=== PATIENT | female | born 1985 | race Caucasian/White ===

== ENCOUNTER 2019-05-23 15:06 | Inpatient (IN) | payer SELFPAY ==
[2019-05-23] VITALS (7 sets, daily range): BP systolic 98–119; BP diastolic 57–66; PULSE 84–107; RESP 16–19; TEMP 36.6–37.4; O2SAT 96–100; BMI 23.2; BMI 24.6
--- NOTE | 2019-05-23 15:26 | US_ITS ---
STUDY: FIRST TRIMESTER OBSTETRICAL ULTRASOUND REASON FOR EXAM: Female, 34 years old. Left lower quadrant pain. Severe. Beta hCG 326. LMP: April 29, 2019 TECHNIQUE: Transvaginal TECHNICAL QUALITY: Adequate. PRIOR ULTRASOUND: None. FINDINGS: There is no demonstrated intrauterine gestational sac. There is no demonstrated yolk sac. The uterus measures 6.7 x 4.6 x 6.2 cm. The myometrium is heterogenous. There is no demonstrated uterine fibroid. The endometrial stripe measures 12.7 mm and is within normal limits. The cervix is closed. The right ovary measures 3.9 x 2.4 x 2.9 cm. There is slightly heterogenous 2.4 x 2.3 x 1.7 cm rounded focus within the right ovary may reflect a complex cyst. The left ovary measures 3.1 x 1.4 x 1.4 cm. There is no left ovarian cyst. There is no visualized left adnexal mass or complex lesion. There is a moderate amount of fluid in the cul de sac. US/Transvaginal w/Preg US IMPRESSION: Moderate amount of free fluid. Heterogenous myometrium may be secondary to underlying adenomyosis. Indeterminate round 2.4 x 2.3 x 1.7 cm within the right ovary and may reflect an underlying corpus luteal cyst however cannot entirely exclude an ectopic . No intrauterine identified. N.B. : The above information has been verbally conveyed by Gali Preciado MD to Tex Lucero AA, on 05/23/2019 17:07:23 (ET). Electronically Signed: Gali Preciado MD at 17:09 EDT Tel , Service support ,
--- NOTE | 2019-05-23 15:30 | ED.DCSUM_ITS ---
- ER Visit Summary Date of Service: 05/23/19 Chief Complaint: Possible ectopic History of Present Illness: The patient is a 34 F who presents with possible ectopic . Patient states she had an ultrasound done in [place] which showed a questionable ectopic . Patient states they were unsure what the saw there and were referred here. Patient states she has had left lower quadrant abdominal pain for the past 3 days that is been getting progressively worse. Patient states the pain is now diffuse but worse in the left lower quadrant. Patient states her pain is worse with moving and with palpation of her abdomen. Patient denies any abnormal vaginal bleeding or discharge. Patient denies any nausea or vomiting. Patient denies any dysuria or hematuria. Patient states her last menstrual period was approximately 30 days ago and was normal. Physical Examination: Vital signs are stable except for mild tachycardia of 107. Patient is afebrile. Patient is in no acute distress. Oral mucosa is pink and moist. Neck is supple. Trachea is midline. There is no JVD noted. Heart was regular rate and rhythm. Lungs are clear and equal bilaterally. Abdomen is soft. Bowel sounds are normal. There is left lower quadrant tenderness. There is no guarding noted. There is mild rebound. There is also some mild left upper quadrant tenderness. There is no right-sided tenderness. Cranial nerves II through XII are intact. There are no focal motor or sensory deficits noted. Test Results: CBC shows leukocytosis of 16.7. Metabolic profile is within normal limits. Urinalysis does not show any evidence of urinary tract in fection. Quantitative hCG was 326. Pelvic ultrasound showed moderate free fluid, indeterminate round 2.4 x 2.3 x 1.7 cm area within the right ovary which may reflect an underlying corpus luteal cyst however ectopic cannot be excluded. Emergency Department Course and Treatment: She was given IV fluids and morphine here. Patient had no improvement with initial morphine. Patient was given a repeat dose of morphine. Patient states she had no improvement with this. Case was discussed with Dr. Patterson. She will admit the patient to her service for possible laparoscopy. Patient was given a repeat dose of Dilaudid. Patient understood and was agreeable with the plan. All questions were answered. Disposition: Admit to hospital Impression: 1. Pelvic pain 2. Possible ectopic This note was generated with [employer] software. It may contain incorrect words, spelling, and punctuation that were not noted in review of the chart prior to signing ED Disposition - Plan for ED Patient: Disposition: Acute Care Hospital [facility] Diagnosis: Pelvic pain Referrals: Deya Diaz PA [Primary Care Provider] -
[2019-05-23] MEDS: 0.9% Normal Saline 1,000 ML 1000 ML IV (15:42)
[2019-05-23] MEDS: Morphine 4 MG/ML Syringe IV ×2 (15:42→18:01)
[2019-05-23 15:47] LABS: Absolute Neutrophil Count 14.5 X10^3/uL (2.0-7.7); Basophil# 0.05 X10^3/uL; Basophil% 0.3 % (0-1); Eosinophil# 0.01 X10^3/uL; Eosinophils% 0.1 % (0-5); Hematocrit 42.2 % (37-47); Hemoglobin 14.4 g/dL (12.0-15.0); Lymphocyte % 7.8 % (19-41); Mean Corp Hgb Conc 34.1 g/dL (32-36); Mean Corpuscular Hgb 30.3 pg (27.0-32.0); Mean Corpuscular Volume 88.7 fL (81-99); Mean Platelet Vol. 9.5 fl (6.2-12.0); Monocyte# 0.73 X10^3/uL; Monocyte% 4.4 % (0-10); NRBC Flagged by Analyzer 0 % (0-5); Neutrophil # 14.53 X10^3/uL (2.7-7.7); Neutrophil % 87.1 % (47-70); Platelet Count 308 K/mm3 (150-450); RBC Distribution Width CV 13.1 % (11.6-14.6); RBC Distribution Width SD 42.6 fl (35.1-43.9); Red Blood Count 4.76 M/mm3 (4.2-5.4); White Blood Count 16.7 K/mm3 (4.4-11.0)
[2019-05-23 15:59] LABS: Anion Gap 7 (5-15); BUN 8 mg/dL (7-18); BUN/Creat Ratio 10.6 RATIO (10-20); Calcium,Total 8.7 mg/dL (8.5-10.1); Chloride 105 mmol/L (98-107); Creatinine, Serum 0.75 mg/dL (0.55-1.02); EST Glomerular Filtration Rate 95 mL/min (>60); Est Glom Filt Rate - Afr Amer 115 mL/min (>60); Estimated Creatinine Clearance 77.35 ml/min; Glucose 84 mg/dL (74-106); Potassium 3.8 mmol/L (3.5-5.1); Sodium Level 137 mmol/L (136-145)
[2019-05-23 16:28] LABS: Mucous, Urine 0 SEEN /hpf (<or=2+); Red Blood Cells-Urine 0 SEEN /hpf (0-5); White Blood Cells 0 SEEN /hpf (0-5)
[2019-05-23 16:31] LABS: hCG Titer Quant., Serum 326 mIU/mL (1-3)
[2019-05-23 16:40] LABS: Color, Urine Yellow (Yellow); Glucose, Dipstick Normal (Normal); Ketone-Dipstick 50 mg/dl (Negative); Leukocyte Esterase-Dipstick Negative /ul (Negative); Nitrite-Dipstick Negative (Negative); Occult Blood-Urine 10 /ul (Negative); Protein-Dipstick Negative (Negative); Specific Gravity, Urine 1.005 (1.002-1.030); Urine Bilirubin Dipstick Negative (Negative); Urine Clarity Clear (Clear); Urine Urobilinogen Normal (Normal); Urine pH 6.5 (5.0 - 8.0)
[2019-05-23 16:58] LABS: Bacteria 2+ /hpf (None Seen); Squamous Epithelial Cells - UA 0-5 SEEN /hpf (5-10)
[2019-05-23] MEDS: HYDROmorphone 0.5 MG/0.5 ML SYRINGE IV (19:13)
--- NOTE | 2019-05-23 19:38 | HP.PCM_ITS ---
History and Physical Date of Admission: 05/23/19 HISTORY OF PRESENT ILLNESS: On 05/23/2019, Anabela Chi, a 34 year old female 1 1 0 0 2, presented for: Anabela presents to [facility] Emergency Dept from [facility] with CC of abdominal pain worsening over the past three days, positive test and possible ectopic . Hgb is stable at 14.4 g/dl. Unable to definitively dx ectopic on sono at [facility], but no IUP noted and increased free fluid in posterior cul de sac. this is confirmed on [facility] sono also. Quant is 326 mIU/ml She has had two doses of morphine and states pain has not improved. last ate yesterday, but has been drinking water today. EB -- abdominal pain. LLQ which began 3 d ago. Anabela claims it has been present continuously. It is located in the lower abdomen. LLQ more than RLQ, but beginning to radiate to RLQ radiating to RLQ. Anabela characterizes the quality o f the abdominal pain. LLQ as cramping. It is relieved by nothing. An associated sign and symptom is none. Additional comment: no vaginal bleeding. ALLERGIES: No Known Allergies MEDICATIONS HISTORY: Current medications prescribed by our practice are: 1. None. REVIEW OF SYSTEMS: GENERAL - Denies fever, or chills SKIN - Denies skin changes EYES - Denies visual changes EARS - Denies difficulty hearing NOSE - Denies nasal congestion or bleeding MOUTH - Denies sore throat or difficulty swallowing NECK - Denies pain or swelling RESPIRATORY - Denies shortness of breath or wheezing CARDIOVASCULAR - Denies palpitations or chest pain GASTROINTESTINAL - denies Nausea, vomiting GENITOURINARY - Denies dysuria, frequency of urination, incontinence of urine MUSCULOSKELETAL - Denies joint or muscle pain NEUROLOGICAL - Denies localized numbness or weakness PSYCHIATRIC - Denies depression or anxiety ENDOCRINE - Denies heat or cold intolerance, weight loss or gain HEMATO-IMMUNOLOGIC - Denies excessive bleeding with cuts PAST HISTORY: Breast/Ovarian/Colon Cancers - Denies Infections - Chicken pox Illnesses - no serious past illnesses Accidents - None History of Abnormal PAPS - Denies Hospitalizations - see surgery SURGICAL HISTORY: 1. 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 No guarding Painful more on LLQ to midlower abdomen but starting to radiate to RLQ also EXTREMITIES - No edema or calf tenderness NEUROLOGICAL - normal gait, normal balance, normal motor PSYCHIATRIC - A and O to time, place, person, mood and affect PELVIC ULTRASOUND: There is no demonstrated intrauterine gestational sac. Uterus 6.7 x 4.6 x 6.2 cm. Endometrial stripe: 12.7 mm and is within normal limits. The cervix is closed. R ovary: 3.9 x 2.4 x 2.9 cm. There is slightly heterogenous 2.4 x 2.3 x 1.7 cm rounded focus within the right ovary may reflect a complex cyst. L ovary: 3.1 x 1.4 x 1.4 cm. There is no left ovarian cyst. There is no visualized left adnexal mass or complex lesion. There is a moderate amount of fluid in the cul de sac. ASSESSMENT: 1. Abdominal Pain,LLQ 2. Unspecified Ectopic Without Intrauterine PLAN BY DIAGNOSIS: 1. Abdominal Pain,LLQ and Unspecified Ectopic Without Intrauterine Worsening pain over last 3 d. No IUP noted. Inc free fluid in posterior cul de sac. Quant only 323 mIU/ml Advised of diff dx and likely diagnosis of ectopic Morphine given twice, with no change in pain. Recommend: laparoscopy for evaluation. Possible salpingectomy. R,B,A of procedure reviewed. All questions answered to patient's and 's satisfaction. consents signed. The visit was approximately 20 minutes in length with most of the time spent in discussion and counseling. H and P generated at time of patient admission. No changes to this document Cedric Patterson MD 05/23/19 1950
[2019-05-23] MEDS: Bupiv/Epi 0.25% 30 ML Vial (21:30)
[2019-05-23] MEDS: Lactated Ringers 1,000 ML 100 ML IV ×2 (22:00→23:01)
--- NOTE | 2019-05-23 23:26 | OP.PCM_ITS ---
Problem List (1) Perforation of sigmoid colon due to diverticulitis Status: Acute Report of Operation Date of Procedure: 05/23/19 Pre-Operative Diagnosis: Perforated sigmoid diverticulitis Post-Operative Diagnosis: Same Surgery/Procedure Performed:: Sigmoid colectomy with anastomosis Specimen's removed: Partial sigmoid colon Description of Procedure: I was called into surgery by Dr. Patterson due to inflamed colon. Upon inspecting the colon laparoscopically the patient appeared to have thickening of a small segment of sigmoid colon with perforation and a small stool ball coming through the hole. At this time I discussed options with her SYNTHETIC RESIN OPERATOR. I discussed the option of sigmoid colectomy with colostomy and with performing a washout. It was decided that the best option would be to perform a partial sigmoid colectomy and primary anastomosis via laparotomy. I discussed this with the patient's . I discussed the risks of bleeding, infection, anastomotic leak, sepsis. I also discussed that there is risk to the fetus if the anastomosis failed. The patient's believes the patient would like to try to perform surgery without the colostomy. A midline incision was made from the superior umbilical port to the inferior suprapubic area. This was deepened to the fascia using electrocautery. The fascia was also divided using electrocautery. A large wound protector was placed into the wound. The sigmoid colon was delivered into the wound. An area proximal and distal to the thickened area were selected. The bowel was divided sharply and the mesentery to the diseased segment of colon was taken with the LigaSure impact. This was sent for pathology. Next each end of the bowel was inspected and appeared to be slowly oozing and having good blood supply. A stay suture was placed on both lateral segments of each piece of the sigmoid colon and these were brought together. Using interrupted silk sutures in the posterior side the serosa was reapproximated. Next two 3-0 chromic sutures were placed in the middle of the posterior sigmoid colon and run in opposite directions laterally. Next the 3-0 chromic sutures were used to [place] suture the anterior bowel wall together. Next anterior serosa was imbricated using interrupted 3-0 silk sutures. The suture line was inspected circumferentially and it appeared to have good hemostasis and airtight. The abdomen was then irrigated and suctioned dry. The mesenteric defect was inspected and loosely approximated using a 3-0 Vicryl suture. The suture line was inspected once more and appeared to be very viable. Next the anterior fascia was closed with 2 running 0 Prolene suture starting either end and meeting in the middle. The subcutaneous tissue was then irrigated and the skin was closed with interrupted 4-0 Monocryl sutures as well as Steri-Strips. Bandages were applied and the patient was awoken and taken to PACU in stable condition. The patient tolerated the procedure well. - Admit VTE Documentation VTE Mechan Device Prophylaxis: SCD's
[2019-05-24] VITALS (9 sets, daily range): BP systolic 93–112; BP diastolic 50–66; PULSE 81–100; RESP 16–18; TEMP 36.4–37.7; O2SAT 95–100; BMI 24.6
--- NOTE | 2019-05-24 | MISC_PTH ---
PATIENT: RAYMOND PLUNKETT LOC: MS3 U#:[id number] AGE/SX: 34/F [place] [facility] [place]: Dr. Jeremie Thibodeaux MD : [id number] BED: 1 DIS: 05/26/2019 SPEC #: [id number] RECD: 05/24/19 12:04 STATUS: PIETER REFeliciano #: [id number] MELISSA: 05/24/19 00:[address]: Jeremie Thibodeaux DEPT: SURGICAL PATHOLOGY RECD BY: Stevenson Pina ENTERED: 05/24/19 12:05 SP TYPE: MISC MINI DR: MD Deya Ayala PA Tissues: A - Pelvis, NOS B - Colon, NOS Procedures: Surgery Specimen Level IV Surgery Specimen Level V HEADER OPERATION: Exploratory laparoscopy converted to open sigmoid colectomy PRE-OP DIAGNOSIS: Ectopic abdominal pain TISSUE SUBMITTED: A - Inflammation of pelvic tissue, B - Sigmoid colon MICROSCOPIC DIAGNOSIS A. Inflammation of pelvic tissue: Fragments of fibroconnective tissue with marked acute and chronic inflammation. B. Sigmoid colon, colectomy: Diverticulosis and diverticulitis. Minute pericolonic lymph nodes with reactive changes. DELMY:ben 05/25/19 MICROSCOPIC DESCRIPTION Slides are reviewed. GROSS DESCRIPTION A - Received in fixative is one container labeled with the patient's name and designated inflammation of pelvic tissue. The specimen consists of multiple irregular fragments of wills-pink soft tissue that in aggregate measure 1.5 x 1 x 0.3 cm. The entire specimen is submitted in one cassette. B - Received in fixative is one container labeled with the patient's name and designated sigmoid colon. The specimen consists of a segment of colon measuring 3.5 cm in length. The serosal surface is covered with dawn purulent exudate. Focal area of congestion and hemorrhage is noted. Both resection margins are opened (not stapled). Sections reveal multiple diverticula with a focal area with ruptured diverticula. Sections of pericolonic adipose tissue do not reveal any obviously enlarged lymph node. Sack Sorter sections are submitted in five cassettes as follows: 1-4 - diverticula, 5 - pericolonic adipose tissue. / DELMY:ben 05/24/19 TC:2 CPT: 84771, 49986
--- NOTE | 2019-05-24 00:25 | NURSING ---
report received form INDUSTRIAL TWISTING MACHINE OPERATOR Lisa
[2019-05-24] MEDS: Ketorolac 30 MG/ML Syringe IV ×5 (01:37→23:48)
[2019-05-24] MEDS: 0.9% NaCl Peripheral Flush Adult/Peds IV ×2 (01:42→05:22)
[2019-05-24] MEDS: Lactated Ringers 1,000 ML 100 ML IV ×4 (03:42→23:50)
[2019-05-24] MEDS: 0.9% NaCl IVPB Med Flush (250 mL) 15 ML IV (05:24)
[2019-05-24 06:28] LABS: Hematocrit 36.6 % (37-47); Hemoglobin 12.3 g/dL (12.0-15.0); Mean Corp Hgb Conc 33.6 g/dL (32-36); Mean Corpuscular Volume 89.3 fL (81-99); Mean Platelet Vol. 9.7 fl (6.2-12.0); Platelet Count 280 K/mm3 (150-450); RBC Distribution Width CV 13.4 % (11.6-14.6); White Blood Count 17.3 K/mm3 (4.4-11.0)
--- NOTE | 2019-05-24 08:09 | PCM.PN.SRG ---
Patient Problems: Active and Suspected Problems Pelvic pain (Acute) Perforation of sigmoid colon due to diverticulitis (Acute) Subjective: Patient reports no flatus yet. Her pain is improved since before surgery. - Physical Exam General: Alert, Oriented x3 HEENT: Atraumatic Neck: No JVD Lungs: Normal air movement Cardiovascular: Regular rate, Regular Rhythm Abdomen: Soft, Non Tender, Non-Distended Extremities: No clubbing Skin: No rashes Musculoskeletal: No Muscle Wasting Neurological: Cranial nerves II-XII grossly intact Vital Signs Temp Pulse Resp BP Pulse Ox 99.6 F H 91 18 94/60 97 05/24/19 04:30 05/24/19 04:30 05/24/19 04:30 05/24/19 04:30 05/24/19 04:30 Oxygen Delivery Method Room Air Weight: 126 lb 1.671 oz Body Mass Index (BMI) 24.6 Intake and Output for Last 24 Hours 05/22/19 05/23/19 05/24/19 23:59 23:59 23:59 Intake Total 2049 / 2049 507.66 / 507.66 Output Total 200 / 200 1200 / 1200 Balance 1850 / 1850 -692.34 / -692.34 Laboratory Tests Past 24 Hrs 05/23/19 05/23/19 05/23/19 15:35 15:35 15:35 WBC 16.7 H RBC 4.76 Hgb 14.4 Hct 42.2 MCV 88.7 MCH 30.3 MCHC 34.1 RDW Std Deviation 42.6 RDW Coeff of Nicholas 13.1 Plt Count 308 MPV 9.5 Immature Gran % (Auto) 0.300 Neut % (Auto) 87.1 H Lymph % (Auto) 7.8 L [place] % (Auto) 4.4 Eos % (Auto) 0.1 Baso % (Auto) 0.3 Absolute Neuts (auto) 14.5 H Absolute Lymphs (auto) 1.30 Nucleated RBC % 0 Sodium Potassium Chloride Carbon Dioxide Anion Gap BUN Creatinine Estim Creat Clear Calc Est GFR (MDRD) Af Amer Est GFR (MDRD) Non-Af BUN/Creatinine Ratio Glucose Calcium HCG, Quant 326 H Urine Color Urine Clarity Urine pH Ur Specific [place] Urine Protein Urine Glucose (UA) Urine Ketones Urine Occult Blood Urine Nitrite Urine Bilirubin Urine Urobilinogen Ur Leukocyte Esterase Urine RBC Urine WBC Ur Squamous Epith Cells Urine Bacteria Urine Mucus Blood Type TNP 05/23/19 05/23/19 05/23/19 15:35 15:35 16:20 WBC RBC Hgb Hct MCV MCH MCHC RDW Std Deviation RDW Coeff of Nicholas Plt Count MPV Immature Gran % (Auto) Neut % (Auto) Lymph % (Auto) [place] % (Auto) Eos % (Auto) Baso % (Auto) Absolute Neuts (auto) Absolute Lymphs (auto) Nucleated RBC % Sodium 137 Potassium 3.8 Chloride 105 Carbon Dioxide 25.0 Anion Gap 7 BUN 8 Creatinine 0.75 Estim Creat Clear Calc 77.35 Est GFR (MDRD) Af Amer 115 Est GFR (MDRD) Non-Af 95 BUN/Creatinine Ratio 10.6 Glucose 84 Calcium 8.7 HCG, Quant Urine Color Yellow Urine Clarity Clear Urine pH 6.5 Ur Specific [place] 1.005 Urine Protein Negative Urine Glucose (UA) Normal Urine Ketones 50 H Urine Occult Blood 10 H Urine Nitrite Negative Urine Bilirubin Negative Urine Urobilinogen Normal Ur Leukocyte Esterase Negative Urine RBC 0 SEEN Urine WBC 0 SEEN Ur Squamous Epith Cells 0-5 SEEN Urine Bacteria 2+ Urine Mucus 0 SEEN Blood Type A POSITIVE 05/24/19 05:55 WBC 17.3 H RBC 4.10 L Hgb 12.3 Hct 36.6 L MCV 89.3 MCH 30.0 MCHC 33.6 RDW Std Deviation 44.0 H RDW Coeff of [place] 13.4 Plt Count 280 MPV 9.7 Immature Gran % (Auto) Neut % (Auto) Lymph % (Auto) [place] % (Auto) Eos % (Auto) Baso % (Auto) Absolute Neuts (auto) Absolute Lymphs (auto) Nucleated RBC % Sodium Potassium Chloride Carbon Dioxide Anion Gap BUN Creatinine Estim Creat Clear Calc Est GFR (MDRD) Af Amer Est GFR (MDRD) Non-Af BUN/Creatinine Ratio Glucose Calcium HCG, Quant Urine Color Urine Clarity Urine pH Ur Specific [place] Urine Protein Urine Glucose (UA) Urine Ketones Urine Occult Blood Urine Nitrite Urine Bilirubin Urine Urobilinogen Ur Leukocyte Esterase Urine RBC Urine WBC Ur Squamous Epith Cells Urine Bacteria Urine Mucus Blood Type Clinical Impression(s) from Imaging Studies Obstetrics Ultrasound 05/23/19 15:26 IMPRESSION: Moderate amount of free fluid. Heterogenous myometrium may be secondary to underlying adenomyosis. Indeterminate round 2.4 x 2.3 x 1.7 cm within the right ovary and may reflect an underlying corpus luteal cyst however cannot entirely exclude an ectopic . No intrauterine identified. N.B. : The above information has been verbally conveyed by Gali Preciado MD to Tex Lucero AA, on 05/23/2019 17:07:23 (ET). Electronically Signed: Gali Preciado MD at 17:09 EDT Tel , Service support , ADDENDUM: 05/23/19 1716 IMPRESSION: Moderate amount of free fluid. Heterogenous myometrium may be secondary to underlying adenomyosis. Indeterminate round 2.4 x 2.3 x 1.7 cm within the right ovary and may reflect an underlying corpus luteal cyst however cannot entirely exclude an ectopic . No intrauterine identified. N.B. : The above information has been verbally conveyed by Gali Preciado MD to Tex Lucero AA, on 05/23/2019 17:07:23 (ET). Electronically Signed: Gali Preciado MD at 17:09 EDT Tel , Service support , Medical Necessity - Tobacco Use Smoking Status: Never smoker Assessment/Plan All Active Problems Pelvic pain (Acute) Perforation of sigmoid colon due to diverticulitis (Acute) 34-year-old female with perforated diverticulitis 1. The patient underwent emergency sigmoid colectomy due to perforation. Primary anastomosis was performed. I explained the surgery and further risks to the patient this morning. I explained that there is a chance of anastomotic leak and if this were to happen she would have to be converted to an end colostomy. 2. I would like to keep patient n.p.o. today. She is not passing any flatus yet. Likely start clears tomorrow. Jeremie Thibodeaux MD Pager: [facility] [address] [place] [address], [address] [place] [address] Office:
--- NOTE | 2019-05-24 08:23 | PN.OBGYN_ITS ---
Patient Problems: Active and Suspected Problems Pelvic pain (Acute) Perforation of sigmoid colon due to diverticulitis (Acute) Subjective: POD#1 L/S for pain. Perforated sigmoid colon diverticula S/P Laparotomy for resection and reanastamosis. Early with quant 326 mIU/ml Some upper abdominal pain. Pain is improving other than that pain. No N/V. neg flatus. remains NPO. K pad use. - Physical Exam General: Alert, Oriented x3, Cooperative, No apparent distress HEENT: Atraumatic, EOMI Neck: Supple Skin: Incision - dressings CDI. Psych/Mental Status: Normal Affect Vital Signs Temp Pulse Resp BP Pulse Ox 99.1 F 81 18 94/63 100 05/24/19 08:15 05/24/19 08:15 05/24/19 08:15 05/24/19 08:15 05/24/19 08:15 Oxygen Delivery Method Room Air Weight: 57.2 kg Body Mass Index (BMI) 24.6 Intake and Output for Last 24 Hours 05/22/19 05/23/19 05/24/19 23:59 23:59 23:59 Intake Total 2049 / 2049 507.66 / 507.66 Output Total 200 / 200 1200 / 1200 Balance 1850 / 1850 -692.34 / -692.34 Laboratory Tests Past 24 Hrs 05/23/19 05/23/19 05/23/19 15:35 15:35 15:35 WBC 16.7 H RBC 4.76 Hgb 14.4 Hct 42.2 MCV 88.7 MCH 30.3 MCHC 34.1 RDW Std Deviation 42.6 RDW Coeff of Nicholas 13.1 Plt Count 308 MPV 9.5 Immature Gran % (Auto) 0.300 Neut % (Auto) 87.1 H Lymph % (Auto) 7.8 L [place] % (Auto) 4.4 Eos % (Auto) 0.1 Baso % (Auto) 0.3 Absolute Neuts (auto) 14.5 H Absolute Lymphs (auto) 1.30 Nucleated RBC % 0 Sodium Potassium Chloride Carbon Dioxide Anion Gap BUN Creatinine Estim Creat Clear Calc Est GFR (MDRD) Af Amer Est GFR (MDRD) Non-Af BUN/Creatinine Ratio Glucose Calcium HCG, Quant 326 H Urine Color Urine Clarity Urine pH Ur Specific [place] Urine Protein Urine Glucose (UA) Urine Ketones Urine Occult Blood Urine Nitrite Urine Bilirubin Urine Urobilinogen Ur Leukocyte Esterase Urine RBC Urine WBC Ur Squamous Epith Cells Urine Bacteria Urine Mucus Blood Type TNP 05/23/19 05/23/19 05/23/19 15:35 15:35 16:20 WBC RBC Hgb Hct MCV MCH MCHC RDW Std Deviation RDW Coeff of [place] Plt Count MPV Immature Gran % (Auto) Neut % (Auto) Lymph % (Auto) [place] % (Auto) Eos % (Auto) Baso % (Auto) Absolute Neuts (auto) Absolute Lymphs (auto) Nucleated RBC % Sodium 137 Potassium 3.8 Chloride 105 Carbon Dioxide 25.0 Anion Gap 7 BUN 8 Creatinine 0.75 Estim Creat Clear Calc 77.35 Est GFR (MDRD) Af Amer 115 Est GFR (MDRD) Non-Af 95 BUN/Creatinine Ratio 10.6 Glucose 84 Calcium 8.7 HCG, Quant Urine Color Yellow Urine Clarity Clear Urine pH 6.5 Ur Specific [place] 1.005 Urine Protein Negative Urine Glucose (UA) Normal Urine Ketones 50 H Urine Occult Blood 10 H Urine Nitrite Negative Urine Bilirubin Negative Urine Urobilinogen Normal Ur Leukocyte Esterase Negative Urine RBC 0 SEEN Urine WBC 0 SEEN Ur Squamous Epith Cells 0-5 SEEN Urine Bacteria 2+ Urine Mucus 0 SEEN Blood Type A POSITIVE 05/24/19 05:55 WBC 17.3 H RBC 4.10 L Hgb 12.3 Hct 36.6 L MCV 89.3 MCH 30.0 MCHC 33.6 RDW Std Deviation 44.0 H RDW Coeff of [place] 13.4 Plt Count 280 MPV 9.7 Immature Gran % (Auto) Neut % (Auto) Lymph % (Auto) [place] % (Auto) Eos % (Auto) Baso % (Auto) Absolute Neuts (auto) Absolute Lymphs (auto) Nucleated RBC % Sodium Potassium Chloride Carbon Dioxide Anion Gap BUN Creatinine Estim Creat Clear Calc Est GFR (MDRD) Af Amer Est GFR (MDRD) Non-Af BUN/Creatinine Ratio Glucose Calcium HCG, Quant Urine Color Urine Clarity Urine pH Ur Specific [place] Urine Protein Urine Glucose (UA) Urine Ketones Urine Occult Blood Urine Nitrite Urine Bilirubin Urine Urobilinogen Ur Leukocyte Esterase Urine RBC Urine WBC Ur Squamous Epith Cells Urine Bacteria Urine Mucus Blood Type Medical Necessity - Tobacco Use Smoking Status: Never smoker Assessment/Plan All Active Problems Pelvic pain (Acute) Perforation of sigmoid colon due to diverticulitis (Acute) #1) POD#1 L/S to laparotomy for perforated sigmoid diverticulitis #2) early . Quant 326 mIU/ml yesterday. repeat quant planned tomorrow to check trend. Early . Will notify of results of follow up quant as available. Care transferred to Dr Thibodeaux.
--- NOTE | 2019-05-24 13:15 | CASEMGMT ---
SW met w/pt and in room in regard to financial status. Pt explained that they pay into a [employer] fund, but she did have questions about paying in full and getting a discount, and if they can apply for assistance. SW explained will call the financial dept and see if someone can speak w/wai on the phone. SW also gave pt and information on [facility] assist, [facility] resources, food bustamante, Medicaid mina, prescription assistance programs, and 211. SW then called the financial dept, and put pt's on the phone w/Rosalina. No further social work needs anticipated. SW available for any further assistance. RAYMON Dotson
--- NOTE | 2019-05-24 13:24 | CASEMGMT ---
RN CM Assessment Presentation: Laparotomy for perforated diverticulitis, early Intro role of CM and purpose of RN CM assessment to patient and her in room. Demographics, PCP and Pharmacy verified. PCP: SALAZAR Padgett Specialists: Dr. Patterson, Dr. Thibodeaux. Pt states she does not have difficulty following up with physicians Preferred Pharmacy: [facility] Insurance: Self pay ([facility]) Prescription Benefit: none. Generally able to pay prescriptions out of pocket. LNOK: , [place] Living Arrangements: Lives independently with . Denies care needs, is independent in home care, ADL's. Transportation: Drives DME: none HHC: none Patient DC goals: Home DC PLAN: Home. Pt does not anticipate any dc concerns. RN CM informed her to notify CM if dc needs or concerns arise. John ALICEAN RN ACM
--- NOTE | 2019-05-24 13:48 | PCM.OPRPT ---
Report of Operation Date of Procedure: 05/23/19 Pre-Operative Diagnosis: LLQ abdominal pain, Free fluid in pelvis. Positive test Post-Operative Diagnosis: Same. Early pregnacy, normal pelvic anatomy. Ruptured sigmoid diverticula Surgery/Procedure Performed:: Diagnostic laparoscopy. Aspiration of fluid from cul de sac. Adhesiolysis. Description of Surgical Findings:: Normal appearing, retroverted retroflexed uterus. Normal fallopian tubes and ovaries. Adhesion between sigmoid colon and posterior pelvis. Inflammatory phlegmon and fluid noted at posterior cul de sac. Perforated sigmoid diverticulum with indurated appearing segment of sigmoid colon. Type of Anesthesia:: General Anesthesiologist: Jerald Fuentes MD Specimen's removed: Inflammatory phlegmon, culture of aspirated fluid. Estimated Blood Loss (mL): minimal Fluids Replaced: LR Description of Procedure: Narrative account: After the risks, benefits, alternatives of the procedure had been reviewed with the patient and her , informed consent was obtained. The patient was taken to the operating room with an IV running. She was positioned on the operating table in dorsal supine position, where she was given general anesthesia. Once asleep she was repositioned into the dorsal lithotomy position and prepped and draped in the usual sterile fashion. A red Mata catheter was used to drain the bladder prior to initiating the case. A sponge stick was placed into the cervix to allow manipulation of the cervix and uterus during the case rather than a Zumi manipulator (in case an early intrauterine is present). Attention was then turned to the anterior abdominal wall where 0.25% percent Marcaine with epinephrine was instilled at the suprapubic and infraumbilical skin and at a point midway between the two, in the midline. Skin incisions were then created in the midline at the suprapubic skin, at the infraumbilical skin, and at a point in the midline midway between the two. While maintaining upward traction of the anterior abdominal wall, a Veress needle was inserted through the umbilical incision into the peritoneal cavity. There was free drop of saline, low opening pressure and free flow of CO2 noted. Once the intra-abdominal pressure had reached 12 mmHg the Veress needle was removed and a bladeless 5 mm trocar was inserted through the infraumbilical skin incision into the peritoneal cavity. Correct placement was confirmed using the scope. Under direct visualization then with the patient in Trendelenburg position, a bladeless 5 mm trocar was inserted in through the suprapubic skin incision into the peritoneal cavity. The uterus was retroverted, retroflexed and both ovaries and fallopian tubes were within normal limits. There was no evidence of an ectopic , however there was a lot of fluid in the posterior cul de sac as well as an inflammatory phlegmon. The fluid was aspirated to send for culture and the phlegmon was removed. A loop of sigmoid colon was noted adherent to the posterior pelvis and for complete visualization, the adhesions were lysed by blunt dissection and at that point an area of induration was noted at the sigmoid colon as well as a perforated diverticulum with a small amount of stool extruding through this defect. The pelvis was irrigated and at this point Dr Thibodeaux was consulted for evaluation and treatment of the ruptured sigmoid colon diverticulum. After Dr Thibodeaux arrived and evaluated the findings, we broke scrub to discuss the management options for the ruptured diverticulum with the patient's . Please see Dr Chaparro'as dictation for the remainder of the case. Photos were taken of the uterus and bilateral remaining fallopian tubes and ovaries and of the right upper quadrant and liver edge. The appendix appeared normal as well as the remaining colon. - Admit VTE Documentation VTE Present on Admission: No VTE Mechan Device Prophylaxis: SCD's VTE Pharm Prophylaxis ordered?: No
[2019-05-24] MEDS: Acetaminophen 325 MG Tablet 650 MG PO ×2 (14:43→21:43)
[2019-05-25 05:20] VITALS: BP 108/64; PULSE 89; RESP 16; TEMP 36.8; O2SAT 99
[2019-05-25] MEDS: 0.9% NaCl Peripheral Flush Adult/Peds IV (05:21)
[2019-05-25] MEDS: Ketorolac 30 MG/ML Syringe IV ×2 (05:21→11:54)
[2019-05-25 07:10] LABS: Absolute Lymphocyte Count 1.23 X10^3/uL (0.83-4.51); Absolute Neutrophil Count 9.6 X10^3/uL (2.0-7.7); Basophil# 0.05 X10^3/uL; Basophil% 0.4 % (0-1); Eosinophil# 0.03 X10^3/uL; Eosinophils% 0.3 % (0-5); Hematocrit 34.4 % (37-47); Hemoglobin 11.5 g/dL (12.0-15.0); Lymphocyte # 1.23 X10^3/ul (4.0); Lymphocyte % 10.5 % (19-41); Mean Corp Hgb Conc 33.4 g/dL (32-36); Mean Corpuscular Volume 89.8 fL (81-99); Mean Platelet Vol. 9.1 fl (6.2-12.0); Monocyte# 0.71 X10^3/uL; Monocyte% 6.1 % (0-10); NRBC Flagged by Analyzer 0 % (0-5); Neutrophil # 9.61 X10^3/uL (2.7-7.7); Platelet Count 267 K/mm3 (150-450); RBC Distribution Width CV 13.6 % (11.6-14.6); RBC Distribution Width SD 44.9 fl (35.1-43.9); Red Blood Count 3.83 M/mm3 (4.2-5.4); White Blood Count 11.7 K/mm3 (4.4-11.0)
[2019-05-25 07:35] LABS: Anion Gap 12 (5-15); BUN 7 mg/dL (7-18); BUN/Creat Ratio 11.2 RATIO (10-20); Chloride 114 mmol/L (98-107); Creatinine, Serum 0.63 mg/dL (0.55-1.02); EST Glomerular Filtration Rate 117 mL/min (>60); Est Glom Filt Rate - Afr Amer 142 mL/min (>60); Estimated Creatinine Clearance 92.08 ml/min; Glucose 62 mg/dL (74-106); Potassium 4.5 mmol/L (3.5-5.1); Sodium Level 140 mmol/L (136-145)
--- NOTE | 2019-05-25 09:56 | PN.SURG_ITS ---
Patient Problems: Active and Suspected Problems Pelvic pain (Acute) Perforation of sigmoid colon due to diverticulitis (Acute) Subjective: Patient reports she is having some nausea. Abdominal pain is minimal. She is not passing any flatus yet. - Physical Exam General: Alert, Oriented x3 Neck: No JVD Lungs: Normal air movement Cardiovascular: Regular rate, Regular Rhythm Abdomen: Soft, Non Tender, Non-Distended Vital Signs Temp Pulse Resp BP Pulse Ox 98.3 F 89 16 108/64 99 05/25/19 05:20 05/25/19 05:20 05/25/19 05:20 05/25/19 05:20 05/25/19 05:20 Oxygen Delivery Method Room Air Weight: 126 lb 1.671 oz Body Mass Index (BMI) 24.6 Intake and Output for Last 24 Hours 05/23/19 05/24/19 05/25/19 23:59 23:59 23:59 Intake Total 2050 / 2050 2707.91 / 2707.91 937.50 / 937.50 Output Total 200 / 200 2250 / 2250 1200 / 1200 Balance 1850 / 1850 457.91 / 457.91 -262.50 / -262.50 Microbiology Past 72 Hours 05/23/19 Unknown Gram Stain - Final Aspirate - Other Laboratory Tests Past 24 Hrs 05/25/19 05/25/19 07:02 07:02 WBC 11.7 H RBC 3.83 L Hgb 11.5 L Hct 34.4 L MCV 89.8 MCH 30.0 MCHC 33.4 RDW Std Deviation 44.9 H RDW Coeff of Nicholas 13.6 Plt Count 267 MPV 9.1 Immature Gran % (Auto) 0.700 Neut % (Auto) 82.0 H Lymph % (Auto) 10.5 L Brown % (Auto) 6.1 Eos % (Auto) 0.3 Baso % (Auto) 0.4 Absolute Neuts (auto) 9.6 H Absolute Lymphs (auto) 1.23 Nucleated RBC % 0 Sodium 140 Potassium 4.5 Chloride 114 H Carbon Dioxide 14.0 L Anion Gap 12 BUN 7 Creatinine 0.63 Estim Creat Clear Calc 92.08 Est GFR (MDRD) Af Amer 142 Est GFR (MDRD) Non-Af 117 BUN/Creatinine Ratio 11.2 Glucose 62 L Calcium 8.0 L Medical Necessity - Tobacco Use Smoking Status: Never smoker Assessment/Plan All Active Problems Pelvic pain (Acute) Perforation of sigmoid colon due to diverticulitis (Acute) 34-year-old female status post sigmoid colectomy POD 2 1. Patient had partial sigmoid colectomy for perforated diverticulitis. Patient is healing well. Her white count is decreasing. Stop antibiotics once white count has completely normalized. Awaiting flatus. Patient is nauseated but there is no distention and her abdominal pain is minimal. Jeremie Thibodeaux MD Pager: [facility] [address] [place] [address], [address] [place] [address] Office:
[2019-05-25 11:00] VITALS: BP 105/72; PULSE 77; RESP 16; TEMP 36.6; O2SAT 100
[2019-05-25] MEDS: Docusate Sodium 100 MG Capsule PO ×2 (11:54→21:53)
[2019-05-25] MEDS: Lactated Ringers 1,000 ML 100 ML IV ×2 (11:54→21:52)
[2019-05-25 16:53] LABS: hCG Titer Quant., Serum 596 mIU/mL (1-3)
[2019-05-25 18:00] VITALS: BP 107/70; PULSE 81; RESP 18; TEMP 36.8; O2SAT 100
[2019-05-25 19:45] VITALS: BP 108/67; PULSE 77; RESP 16; TEMP 36.8; O2SAT 100
[2019-05-25] MEDS: 0.9% NaCl IVPB Med Flush (250 mL) 15 ML IV (19:45)
[2019-05-25] MEDS: Acetaminophen 325 MG Tablet 650 MG PO (21:52)
[2019-05-26 05:45] VITALS: BP 104/71; PULSE 83; RESP 16; TEMP 36.7; O2SAT 99
[2019-05-26 06:22] LABS: Absolute Lymphocyte Count 1.22 X10^3/uL (0.83-4.51); Absolute Neutrophil Count 5.9 X10^3/uL (2.0-7.7); Basophil# 0.05 X10^3/uL; Basophil% 0.6 % (0-1); Eosinophil# 0.16 X10^3/uL; Hematocrit 28.8 % (37-47); Hemoglobin 9.6 g/dL (12.0-15.0); Lymphocyte # 1.22 X10^3/ul (4.0); Lymphocyte % 15.3 % (19-41); Mean Corp Hgb Conc 33.3 g/dL (32-36); Mean Corpuscular Hgb 29.4 pg (27.0-32.0); Mean Corpuscular Volume 88.3 fL (81-99); Mean Platelet Vol. 9.6 fl (6.2-12.0); Monocyte% 7.5 % (0-10); NRBC Flagged by Analyzer 0 % (0-5); Neutrophil % 74.2 % (47-70); Platelet Count 260 K/mm3 (150-450); RBC Distribution Width CV 13.6 % (11.6-14.6); RBC Distribution Width SD 44.4 fl (35.1-43.9); Red Blood Count 3.26 M/mm3 (4.2-5.4)
[2019-05-26 06:38] LABS: Anion Gap 11 (5-15); BUN 6 mg/dL (7-18); BUN/Creat Ratio 11.9 RATIO (10-20); Calcium,Total 7.5 mg/dL (8.5-10.1); Chloride 114 mmol/L (98-107); EST Glomerular Filtration Rate 150 mL/min (>60); Est Glom Filt Rate - Afr Amer 182 mL/min (>60); Estimated Creatinine Clearance 116.03 ml/min; Glucose 71 mg/dL (74-106); Potassium 3.8 mmol/L (3.5-5.1); Sodium Level 142 mmol/L (136-145)
[2019-05-26] MEDS: Lactated Ringers 1,000 ML 100 ML IV (07:25)
[2019-05-26 09:05] VITALS: BP 107/73; PULSE 65; RESP 16; TEMP 36.8; O2SAT 99
[2019-05-26] MEDS: Docusate Sodium 100 MG Capsule PO (09:23)
--- NOTE | 2019-05-26 09:33 | PCM.PN.SRG ---
Patient Problems: Active and Suspected Problems Pelvic pain (Acute) Perforation of sigmoid colon due to diverticulitis (Acute) Subjective: Patient feels less bloated today. Patient is having flatus today. Tolerating liquids without difficulty. Objective: Abdomen is soft nontender dressings are dry - Physical Exam Vital Signs Temp Pulse Resp BP Pulse Ox 98.2 F 65 16 107/73 99 05/26/19 09:05 05/26/19 09:05 05/26/19 09:05 05/26/19 09:05 05/26/19 09:05 Oxygen Delivery Method Room Air Weight: 126 lb 1.671 oz Body Mass Index (BMI) 24.6 Intake and Output for Last 24 Hours 05/24/19 05/25/19 05/26/19 23:59 23:59 23:59 Intake Total 2707.91 / 2707.91 2828.46 / 2828.46 1431.29 / 1431.29 Output Total 2250 / 2250 2900 / 2900 700 / 700 Balance 457.91 / 457.91 -71.54 / -71.54 731.29 / 731.29 Microbiology Past 72 Hours 05/23/19 Unknown Gram Stain - Final Aspirate - Other Wound Culture - Final Escherichia coli Laboratory Tests Past 24 Hrs 05/25/19 05/26/19 05/26/19 16:05 05:40 05:40 WBC 8.0 RBC 3.26 L Hgb 9.6 L Hct 28.8 L MCV 88.3 MCH 29.4 MCHC 33.3 RDW Std Deviation 44.4 H RDW Coeff of Nicholas 13.6 Plt Count 260 MPV 9.6 Immature Gran % (Auto) 0.400 Neut % (Auto) 74.2 H Lymph % (Auto) 15.3 L Schleicher % (Auto) 7.5 Eos % (Auto) 2.0 Baso % (Auto) 0.6 Absolute Neuts (auto) 5.9 Absolute Lymphs (auto) 1.22 Nucleated RBC % 0 Sodium 142 Potassium 3.8 Chloride 114 H Carbon Dioxide 17.0 L Anion Gap 11 BUN 6 L Creatinine 0.50 L Estim Creat Clear Calc 116.03 Est GFR (MDRD) Af Amer 182 Est GFR (MDRD) Non-Af 150 BUN/Creatinine Ratio 11.9 Glucose 71 L Calcium 7.5 L HCG, Quant 596 H Medical Necessity - Tobacco Use Smoking Status: Never smoker Assessment/Plan All Active Problems Pelvic pain (Acute) Perforation of sigmoid colon due to diverticulitis (Acute) Postoperative day #4 We will advance diet today. Anticipate discharge this afternoon. Will discharge on oral antibiotics and oral pain meds
--- NOTE | 2019-05-26 09:36 | DCINST_ITS ---
Discharge Diet: Light diet - advance as tolerated - If you have questions about your diet instructions, please talk to your doctor. Discharge Activity: May Not Drive - for 1 week or while taking narcotic pain medicine. May shower in (days): 1 Lifting Restrictions: 10 pounds Call your doctor if your incision/area has: Continuous Slow Oozing, Sudden Increased Bleeding, Increased Pain/ Swelling, Increased Redness, Foul Smelling Discharge Call your doctor if you observe: Fever of 101 or Higher Suture Line Care: Avoid Pulling/Pushing, Avoid Pinching/Bending Additional Dressing/Incision Instructions:: Change or remove dressing in 4 days. Leave steri-strips in place for 1 week. Allergies/Adverse Reactions: Allergies No Known Allergies Allergy (Verified 05/23/19 15:07) Medications to take at Discharge NK 05/24/19 Primary Care Physician: Deya Diaz PA [Primary Care Provider] - Test Results: Test results from this visit will be discussed in further detail at your follow- up appointment, if applicable. Please Follow Up With: Brendan Baires MD - [phone] When: Call to make an appointment to be seen in about 10 days.
--- NOTE | 2019-05-31 15:57 | DS.PCM_ITS ---
Discharge Date and Diagnosis Date of Admission: 05/23/19 Date of Discharge: 05/26/19 - Primary Discharge Diagnosis Perforated sigmoid diverticulitis Hospital Course and Treatment Operations: colectomy - Sigmoid colectomy with anastomosis Summary of Care Provided: The patient is a 34 year old F who presented from [facility] with left lower quadrant abdominal pain. Patient had a positive test and u/s was suspicious for ectopic . Patient was taken to surgery by Dr. Patterson for an exploratory. Dr. Thibodeaux was consulted intraoperatively for a perforated sigmoid diverticulitis. Dr. Thibodeaux performed a sigmoidectomy with anastomosis on 05/23/19. Patient tolerated the procedure well. Upon discharge, patient denies nausea, vomiting. She was tolerating a diet. Positive flatus. Discharged on antibiotics. - Physical Exam Vital Signs Temp Pulse Resp BP Pulse Ox 98.2 F 65 16 107/73 99 05/26/19 09:05 05/26/19 09:05 05/26/19 09:05 05/26/19 09:05 05/26/19 09:05 Oxygen Delivery Method Room Air Weight: 126 lb 1.671 oz Body Mass Index (BMI) 24.6 Microbiology Past 72 Hours 05/23/19 Unknown Gram Stain - Final Aspirate - Other Wound Culture - Final Escherichia coli Anaerobic Culture - Final Bacteroides vulgatus Bacteroides fragilis Discharge Diet: Light diet - advance as tolerated - If you have questions about your diet instructions, please talk to your doctor. Discharge Activity: May Not Drive - for 1 week or while taking narcotic pain medicine. May shower in (days): 1 Call your doctor if your incision/area has: Continuous Slow Oozing, Sudden Increased Bleeding, Increased Pain/ Swelling, Increased Redness, Foul Smelling Discharge Call your doctor if you observe: Fever of 101 or Higher Suture Line Care: Avoid Pulling/Pushing, Avoid Pinching/Bending Additional Dressing/Incision Instructions:: Change or remove dressing in 4 days. Leave steri-strips in place for 1 week. Home Medications: Medications to take at Discharge Amoxicillin/Potassium Clav [Augmentin 875-125 Tablet] 1 ea PO BID 5 Days #10 tab 05/26/19 Oxycodone HCl/Acetaminophen [Percocet 5/325] 1 - 2 tab PO Q4H PRN PRN 6 Days #30 tab 05/26/19 Following Prescrptions Were Given to Patient: Amoxicillin/Potassium Clav [Augmentin 875-125 Tablet] 1 ea PO BID 5 Days #10 tab Prescription Printed Oxycodone HCl/Acetaminophen [Percocet 5/325] 1 - 2 tab PO Q4H PRN PRN 6 Days #30 tab PRN Reason: Pain Prescription Printed Primary Care Physician: Deya Diaz PA [Primary Care Provider] - Please Follow Up With: Brendan Baires MD - [phone] When: Call to make an appointment to be seen in about 10 days. Disposition: Home Minutes spent on discharge:: 20 Patient Condition:: Stable Medical Necessity - Tobacco Use Smoking Status: Never smoker Meaningful Use Info Meaningful Use Diagnoses (Choose all that apply): None applicable Code Visit Inpatient E&M: 16036 Disch Hosp - No charge
== END 2019-05-26 13:08 | disposition home or self-care (01) | DRG 818 ==
LOC: ED 19:06 → SDC 19:28 → MS3 19:30 → SDC 05-24 01:05 → MS3 05-24 01:07
PROVIDERS: Admitting Provider Obstetrics & Gynecology; Emergency Provider Emergency Medicine; Family Provider Physician Assistant; PCP Physician Assistant; Visit Provider Surgery
PROC: 0DNW4ZZ Release Peritoneum, Percutaneous Endoscopic Approach (ICD-10-PCS; CPT 49320; principal; 2019-05-23 20:30)
DX: O99.611 Diseases of the digestive system complicating pregnancy, first trimester (principal); K57.20 Diverticulitis of large intestine with perforation and abscess without bleeding; Z3A.00 Weeks of gestation of pregnancy not specified; Z53.31 Laparoscopic surgical procedure converted to open procedure; O99.89 Other specified diseases and conditions complicating pregnancy, childbirth and the puerperium; N73.6 Female pelvic peritoneal adhesions (postinfective)
CPT/HCPCS: 36415; 76817; 80048; 81001; 84702; 85025; 85027; 86900; 86901; 87070; 87075; 87077; 87186; 87205; 88305; 88307; 99284; J7030; J7050; J7120; A4216; J3490

== ENCOUNTER → 2019-05-28 15:40 | Outpatient (CLI) | payer SELFPAY ==
[2019-05-24 00:32] VITALS: BMI 24.6
[2019-05-28 17:27] LABS: hCG Titer Quant., Serum 1752 mIU/mL (1-3)
== END ==
PROVIDERS: Visit Provider Obstetrics & Gynecology
DX: O20.0 Threatened abortion (principal); Z3A.00 Weeks of gestation of pregnancy not specified
CPT/HCPCS: 36415; 84702

== ENCOUNTER → 2019-06-12 16:07 | Outpatient (CLI) | payer SELFPAY ==
[2019-05-24 00:32] VITALS: BMI 24.6
[2019-06-12 19:04] LABS: Chlamydia Trachomatis by PCR Negative (Negative); Neisserai gonorrhoeae by PCR Negative (Negative); Probe Check PASS; Sample Adequacy Control PASS; Specimen Processing Control PASS
== END ==
PROVIDERS: Visit Provider Obstetrics & Gynecology
DX: Z12.4 Encounter for screening for malignant neoplasm of cervix (principal); Z11.3 Encounter for screening for infections with a predominantly sexual mode of transmission; Z32.01 Encounter for pregnancy test, result positive
CPT/HCPCS: 87491; 87591; 88175; G0145

== ENCOUNTER → 2019-07-11 15:03 | Outpatient (CLI) | payer SELFPAY ==
[2019-05-24 00:32] VITALS: BMI 24.6
[2019-07-11 16:10] LABS: Absolute Lymphocyte Count 2.38 X10^3/uL (0.83-4.51); Absolute Neutrophil Count 10.2 X10^3/uL (2.0-7.7); Basophil# 0.06 X10^3/uL; Basophil% 0.4 % (0-1); Eosinophil# 0.06 X10^3/uL; Eosinophils% 0.4 % (0-5); Hematocrit 41.8 % (37-47); Hemoglobin 14.2 g/dL (12.0-15.0); Lymphocyte # 2.38 X10^3/ul (4.0); Lymphocyte % 17.8 % (19-41); Mean Corpuscular Hgb 30.5 pg (27.0-32.0); Mean Corpuscular Volume 89.7 fL (81-99); Mean Platelet Vol. 9.8 fl (6.2-12.0); Monocyte# 0.61 X10^3/uL; Monocyte% 4.6 % (0-10); NRBC Flagged by Analyzer 0 % (0-5); Neutrophil # 10.16 X10^3/uL (2.7-7.7); Platelet Count 356 K/mm3 (150-450); RBC Distribution Width CV 13.8 % (11.6-14.6); RBC Distribution Width SD 44.7 fl (35.1-43.9); Red Blood Count 4.66 M/mm3 (4.2-5.4); White Blood Count 13.4 K/mm3 (4.4-11.0)
[2019-07-11 16:25] LABS: Thyroid Stim Hormone (TSH) 0.25 uIU/mL (0.358-3.74)
[2019-07-11 16:26] LABS: Amphetamine Urine VISTA NEGATIVE (<1000 ng/mL); Barbiturate Urine VISTA NEGATIVE (< 200 ng/mL); Benzodiazepine Urine VISTA NEGATIVE (< 200 ng/mL); Cocaine Urine VISTA NEGATIVE (< 300 ng/mL); Ecstacy Urine VISTA NEGATIVE (< 500 ng/mL); Methadone Urine VISTA NEGATIVE (< 300 ng/mL); PCP Urine VISTA NEGATIVE (< 25 ng/mL); THC Urine VISTA NEGATIVE (< 50 ng/mL); Vista UDS pH Range 6
[2019-07-11 16:28] LABS: Color, Urine Yellow (Yellow); Glucose, Dipstick Normal (Normal); Ketone-Dipstick Negative (Negative); Leukocyte Esterase-Dipstick Negative /ul (Negative); Nitrite-Dipstick Negative (Negative); Occult Blood-Urine Negative /ul (Negative); Protein-Dipstick Negative (Negative); Specific Gravity, Urine 1.005 (1.002-1.030); Urine Bilirubin Dipstick Negative (Negative); Urine Clarity Clear (Clear); Urine Urobilinogen Normal (Normal); Urine pH 6.5 (5.0 - 8.0)
[2019-07-12 10:13] LABS: HIV - WCH Non-Reactive (Nonreactive); Hepatitis B Surface Antigen Non-Reactive (Nonreactive); Hepatitis C Antibody Non-Reactive (Nonreactive); Progesterone Level 58.62 ng/mL (See Comment); Rubella IgG 477.4 IU/mL; Vitamin D,25 Hydroxy 27.5 ng/mL (29.95-100.01)
[2019-07-12 10:58] LABS: T4 Free Direct 1.15 ng/dL (0.76-1.46)
[2019-07-13 02:37] LABS: Prenatal RPR NONREACTIVE (NONREACTIVE)
== END ==
PROVIDERS: Visit Provider Obstetrics & Gynecology
DX: O99.281 Endocrine, nutritional and metabolic diseases complicating pregnancy, first trimester (principal); E03.9 Hypothyroidism, unspecified; Z3A.00 Weeks of gestation of pregnancy not specified
CPT/HCPCS: 36415; 80307; 81002; 82306; 84144; 84439; 84443; 85025; 86703; 86762; 86803; 87340

== ENCOUNTER 2019-08-15 19:12 | Emergency (ER) | payer OTHER, SELFPAY ==
[2019-05-24 00:32] VITALS: BMI 24.6
[2019-08-15 19:13] VITALS: BP 122/74; PULSE 76; RESP 16; TEMP 36.4; O2SAT 99; BMI 24.7
--- NOTE | 2019-08-15 19:52 | RAD_ITS ---
STUDY: X-RAY CHEST REASON FOR EXAM: Female, 34 years old. Abdominal pain TECHNIQUE: Single frontal view of the chest. COMPARISON: None. FINDINGS: Cardiac silhouette unremarkable. Pulmonary vascularity unremarkable. Aorta unremarkable. No focal airspace opacities. No pleural effusions. Upper abdomen unremarkable. Osseous structures intact. No pneumothorax. RAD/Chest 1 View (Portable) IMPRESSION: No acute cardiopulmonary findings Electronically Signed: Fercho Yadav, at 20:25 EST Tel , Service support ,
--- NOTE | 2019-08-15 19:55 | ED.VISSUMM ---
- ER Visit Summary Date of Service: 08/15/19 Chief Complaint: Abdominal pain History of Present Illness: The patient is a 34 F who presents with left lower quadrant abdominal pain that has gradually gotten worse over the past 3 days. Patient saw her primary care physician today who prescribed her antibiotics for probable diverticulitis. Patient has a history of diverticulitis with perforation. Patient is concerned over possible perforation. Patient was referred to the emergency department by her primary care physician. Patient is 16 weeks . Patient states the pain is localized to the left lower quadrant. Patient states the pain is worse with any movement. Patient describes her pain as sharp. Patient admits to some diarrhea but denies any melena or hematochezia. Patient denies any dysuria or hematuria. Patient denies any abnormal vaginal bleeding or discharge. Patient states she did have an ultrasound during this and has a normal intrauterine . Physical Examination: Vital signs are stable. Patient is afebrile. Patient is in no acute distress. Oral mucosa is pink and moist. Neck is supple. Trachea is midline. There is no JVD. Heart was regular rate and rhythm. Lungs are clear and equal bilaterally. Abdomen is soft. Bowel sounds are normal. There is some left lower quadrant tenderness. There is no rebound or guarding noted. Cranial nerves II through XII are intact. There are no focal motor or sensory deficits noted. Test Results: CBC shows a slight leukocytosis of 13.0. Comprehensive metabolic profile was normal. Urinalysis does not show any evidence of urinary tract infection. Portable chest x-ray was obtained. There is no free air under the diaphragm. There is no acute cardiopulmonary process. This was interpreted by the radiologist and reviewed by myself. Emergency Department Course and Treatment: Patient was given IV fluids here. I discussed with the patient that we could not do a CT scan of her abdomen pelvis to evaluate for diverticulitis however, a upright chest x-ray was obtained to look for free air under the diaphragm for possible perforation. Patient was agreeable with this. Patient was advised of her findings. Patient was instructed to start her antibiotics as prescribed. Patient was instructed to follow-up with her primary care physician in 5 to 7 days. Patient understood and was agreeable with the plan. All questions were answered. Disposition: Discharge home Impression: 1. Left lower quadrant abdominal pain 2. History of diverticulitis 3. This note was generated with Dragon dictation software. It may contain incorrect words, spelling, and punctuation that were not noted in review of the chart prior to signing ED Disposition - Plan for ED Patient: Disposition: Home or Assisted Living Diagnosis: Abdominal pain Instructions: Diverticulitis Referrals: Deya Diaz PA [Primary Care Provider] - 3-5 Days
[2019-08-15 20:01] LABS: Absolute Lymphocyte Count 2.61 X10^3/uL (0.83-4.51); Absolute Neutrophil Count 9.6 X10^3/uL (2.0-7.7); Basophil# 0.05 X10^3/uL; Basophil% 0.4 % (0-1); Eosinophil# 0.05 X10^3/uL; Eosinophils% 0.4 % (0-5); Hematocrit 40.1 % (37-47); Hemoglobin 13.5 g/dL (12.0-15.0); Lymphocyte # 2.61 X10^3/ul (4.0); Lymphocyte % 20.1 % (19-41); Mean Corp Hgb Conc 33.7 g/dL (32-36); Mean Corpuscular Hgb 29.7 pg (27.0-32.0); Mean Corpuscular Volume 88.3 fL (81-99); Mean Platelet Vol. 9.7 fl (6.2-12.0); Monocyte# 0.62 X10^3/uL; Monocyte% 4.8 % (0-10); NRBC Flagged by Analyzer 0 % (0-5); Neutrophil # 9.59 X10^3/uL (2.7-7.7); Neutrophil % 73.7 % (47-70); Platelet Count 333 K/mm3 (150-450); RBC Distribution Width CV 13.2 % (11.6-14.6); RBC Distribution Width SD 42.7 fl (35.1-43.9); Red Blood Count 4.54 M/mm3 (4.2-5.4)
[2019-08-15] MEDS: 0.9% Normal Saline 1,000 ML 1000 ML IV (20:03)
[2019-08-15 20:09] LABS: Mucous, Urine 0 SEEN /hpf (<or=2+); Red Blood Cells-Urine 0 SEEN /hpf (0-5)
[2019-08-15 20:14] LABS: ALB/GLOB Ratio 0.8 RATIO (0.9-2.4); AST(SGOT) 12 U/L (15-37); Alanine Aminotransfer ALT/SGPT 14 U/L (13-56); Albumin, Serum 3.2 g/dL (3.2-5.0); Alkaline Phosphatase 48 U/L (45-117); Anion Gap 10 (5-15); BUN 6 mg/dL (7-18); Calcium,Total 8.9 mg/dL (8.5-10.1); Chloride 104 mmol/L (98-107); Creatinine, Serum 0.55 mg/dL (0.55-1.02); EST Glomerular Filtration Rate 137 mL/min (>60); Est Glom Filt Rate - Afr Amer 166 mL/min (>60); Estimated Creatinine Clearance 105.48 ml/min; Globulin 3.8 g/dL (2.2-4.2); Glucose 76 mg/dL (74-106); Potassium 3.6 mmol/L (3.5-5.1); Sodium Level 138 mmol/L (136-145)
[2019-08-15 20:17] LABS: Color, Urine Yellow (Yellow); Glucose, Dipstick Normal (Normal); Leukocyte Esterase-Dipstick Negative /ul (Negative); Nitrite-Dipstick Negative (Negative); Occult Blood-Urine Negative /ul (Negative); Protein-Dipstick Negative (Negative); Urine Bilirubin Dipstick Negative (Negative); Urine Clarity Clear (Clear); Urine Urobilinogen Normal (Normal); Urine pH 6.5 (5.0 - 8.0)
[2019-08-15 20:19] LABS: Ketone-Dipstick 150 mg/dl (Negative)
[2019-08-15 20:27] LABS: Bacteria RARE /hpf (None Seen); Squamous Epithelial Cells - UA 0-5 SEEN /hpf (5-10); White Blood Cells 0-5 SEEN /hpf (0-5)
--- NOTE | 2019-08-15 20:34 | ED.RN ---
Lab callled to report urine ketones 150. Primary nurse and physician made aware.
[2019-08-15 22:28] VITALS: BP 104/62; PULSE 72; RESP 15; O2SAT 98
== END 2019-08-15 22:29 | disposition home or self-care (01) ==
PROVIDERS: Emergency Provider Emergency Medicine; Family Provider Physician Assistant; PCP Physician Assistant
DX: O26.892 Other specified pregnancy related conditions, second trimester (principal); R10.32 Left lower quadrant pain; Z3A.16 16 weeks gestation of pregnancy; Z87.19 Personal history of other diseases of the digestive system
CPT/HCPCS: 71045; 80053; 81001; 85025; 96360; 96361; 99283; J7030; A4216

== ENCOUNTER 2019-08-17 14:30 | Emergency (ER) | payer OTHER, SELFPAY ==
[2019-08-17 14:31] VITALS: BP 125/79; PULSE 73; RESP 16; TEMP 36.7; O2SAT 100; BMI 24.7
[2019-08-17 14:34] VITALS: BP 111/65; PULSE 68; RESP 16; TEMP 36.8; O2SAT 99
--- NOTE | 2019-08-17 15:16 | CT_ITS ---
STUDY: CT ABDOMEN AND PELVIS WITH CONTRAST REASON FOR EXAM: Female, 34 years old. Left lower quadrant pain RADIATION DOSAGE (If Supplied By Facility): CTDIvol = ( 8.68 ) mGy, DLP = ( 377.95 ) mGycm TECHNIQUE: Transaxial images were obtained from the dome of the diaphragm to the symphysis pubis with oral contrast. IV/Oral Isovue 370 100 was administered. Sagittal and coronal images were reconstructed. Individualized dose optimization techniques were used for this CT. COMPARISON: None. FINDINGS: The visualized lung bases are unremarkable. The visualized portions of the heart are within normal limits. Normal liver. Normal gallbladder and extrahepatic biliary system. Normal spleen. Normal pancreas. Normal bilateral adrenal glands. Normal right kidney. Normal left kidney. Normal visualized stomach. Normal small intestine. Normal colon. The appendix is visualized and appears normal. Normal abdominal aorta. Normal inferior vena cava. Normal retroperitoneum. Normal urinary bladder. Gravid uterus Normal abdominal wall. Normal osseous structures. CT/Abdomen/Pelvis WITH Contrast IMPRESSION: No acute findings. No evidence of diverticulitis. Gravid uterus. Electronically Signed: Tomer Valdes DO at 17:47 EST Tel , Service support ,
--- NOTE | 2019-08-17 15:27 | ED.DCSUM_ITS ---
- ER Visit Summary Date of Service: 08/17/19 Chief Complaint: Left lower quadrant abdominal pain History of Present Illness: The patient is a 34 F who presents with left lower quadrant abdominal pain that is been getting worse over the past 5 days. Patient has been on antibiotics for diverticulitis and feels like she is getting worse. Patient states she is on Augmentin. Patient is approximately 16 weeks . Patient states she has had a perforation from diverticulitis in the past and is concerned about this. Patient was seen here couple days ago and had a upright chest x-ray which did not show any free air which would indicate a perforation. Patient states she does not feel the Augmentin is working for her diverticulitis. Physical Examination: Vital signs are stable. Patient is afebrile. Patient is in no acute distress. Oral mucosa is pink and moist. Neck is supple. Trachea is midline. There is no JVD. Heart was regular rate and rhythm. Lungs are clear and equal bilaterally. Abdomen is soft. There is lower abdominal tenderness, worse on the left. There is no rebound. There is no guarding. Cranial nerves II through XII are intact. There are no focal motor or sensory deficits noted. Test Results: CBC showed leukocytosis of 11.8 which is improved from 2 days ago. Comprehensive metabolic profile is within normal limits. Due to the patient's increasing concern for diverticulitis, CT scan of the abdomen pelvis was obtai navdeep. There is no evidence of diverticulitis. There is no acute findings. These were interpreted by the radiologist and myself. Emergency Department Course and Treatment: Patient was given IV fluids, morphine, and Zofran. Patient was feeling better on reevaluation. Patient was advised of her findings. Patient was instructed to finish her antibiotics as prescribed until gone. Patient was instructed to follow-up with her primary care physician in 3 to 5 days. Patient understood and was agreeable with the plan. All questions were answered. Disposition: Discharge home Impression: 1. Left lower quadrant abdominal pain This note was generated with [employer] dictation software. It may contain incorrect words, spelling, and punctuation that were not noted in review of the chart prior to signing ED Disposition - Plan for ED Patient: Disposition: Home or Assisted Living Diagnosis: Left lower quadrant abdominal pain Instructions: ABDOMINAL PAIN, Unknown Cause, (Female) Referrals: Deya Diaz PA [Primary Care Provider] - 3-5 Days
[2019-08-17 15:34] VITALS: BP 111/75; PULSE 65; RESP 18; TEMP 36.4; O2SAT 100
[2019-08-17] MEDS: 0.9% Normal Saline 1,000 ML 1000 ML IV (15:37)
[2019-08-17] MEDS: Morphine 4 MG/ML Syringe IV (15:37)
[2019-08-17 15:39] LABS: Absolute Neutrophil Count 9.6 X10^3/uL (2.0-7.7); Basophil# 0.05 X10^3/uL; Basophil% 0.4 % (0-1); Eosinophil# 0.05 X10^3/uL; Eosinophils% 0.4 % (0-5); Hematocrit 38.5 % (37-47); Hemoglobin 13.3 g/dL (12.0-15.0); Lymphocyte % 13.5 % (19-41); Mean Corp Hgb Conc 34.5 g/dL (32-36); Mean Corpuscular Hgb 30.4 pg (27.0-32.0); Mean Corpuscular Volume 87.9 fL (81-99); Mean Platelet Vol. 9.6 fl (6.2-12.0); Monocyte# 0.52 X10^3/uL; Monocyte% 4.4 % (0-10); NRBC Flagged by Analyzer 0 % (0-5); Neutrophil # 9.56 X10^3/uL (2.7-7.7); Neutrophil % 80.8 % (47-70); Platelet Count 306 K/mm3 (150-450); RBC Distribution Width SD 42.1 fl (35.1-43.9); Red Blood Count 4.38 M/mm3 (4.2-5.4); White Blood Count 11.8 K/mm3 (4.4-11.0)
[2019-08-17 15:52] LABS: ALB/GLOB Ratio 0.8 RATIO (0.9-2.4); AST(SGOT) 12 U/L (15-37); Alanine Aminotransfer ALT/SGPT 13 U/L (13-56); Albumin, Serum 3.1 g/dL (3.2-5.0); Alkaline Phosphatase 47 U/L (45-117); Anion Gap 10 (5-15); BUN 5 mg/dL (7-18); BUN/Creat Ratio 9.1 RATIO (10-20); Calcium,Total 8.9 mg/dL (8.5-10.1); Chloride 106 mmol/L (98-107); Creatinine, Serum 0.55 mg/dL (0.55-1.02); EST Glomerular Filtration Rate 136 mL/min (>60); Est Glom Filt Rate - Afr Amer 164 mL/min (>60); Estimated Creatinine Clearance 105.48 ml/min; Globulin 3.7 g/dL (2.2-4.2); Glucose 65 mg/dL (74-106); Protein, Total 6.8 g/dL (6.4-8.2); Sodium Level 138 mmol/L (136-145)
[2019-08-17] MEDS: Ondansetron 4 MG/2 ML Vial IV (16:04)
[2019-08-17 16:34] VITALS: BP 118/79; PULSE 70; RESP 18; TEMP 36.6; O2SAT 100
[2019-08-17 17:34] VITALS: BP 113/67; PULSE 77; RESP 16; TEMP 37; O2SAT 99
[2019-08-17 18:22] VITALS: BP 111/70; PULSE 83; RESP 16; O2SAT 100
== END 2019-08-17 18:41 | disposition home or self-care (01) ==
PROVIDERS: Emergency Provider Emergency Medicine; Family Provider Physician Assistant; PCP Physician Assistant
DX: O26.892 Other specified pregnancy related conditions, second trimester (principal); R10.32 Left lower quadrant pain; Z3A.16 16 weeks gestation of pregnancy
CPT/HCPCS: 74177; 80053; 85025; 96361; 96374; 96375; 99283; J7030; Q9967; A4216; J2405

== ENCOUNTER → 2019-08-20 14:03 | Outpatient (CLI) | payer SELFPAY ==
[2019-08-17 14:31] VITALS: BMI 24.7
[2019-08-20 17:45] LABS: Absolute Lymphocyte Count 1.77 X10^3/uL (0.83-4.51); Basophil# 0.04 X10^3/uL; Basophil% 0.4 % (0-1); Eosinophil# 0.06 X10^3/uL; Eosinophils% 0.6 % (0-5); Hematocrit 38.2 % (37-47); Hemoglobin 12.9 g/dL (12.0-15.0); Lymphocyte # 1.77 X10^3/ul (4.0); Mean Corp Hgb Conc 33.8 g/dL (32-36); Mean Corpuscular Hgb 30.1 pg (27.0-32.0); Mean Corpuscular Volume 89.3 fL (81-99); Mean Platelet Vol. 10.3 fl (6.2-12.0); Monocyte# 0.47 X10^3/uL; Monocyte% 4.5 % (0-10); NRBC Flagged by Analyzer 0 % (0-5); Neutrophil # 8.04 X10^3/uL (2.7-7.7); Neutrophil % 77.1 % (47-70); Platelet Count 313 K/mm3 (150-450); RBC Distribution Width CV 13.4 % (11.6-14.6); RBC Distribution Width SD 43.6 fl (35.1-43.9); Red Blood Count 4.28 M/mm3 (4.2-5.4); White Blood Count 10.4 K/mm3 (4.4-11.0)
== END ==
PROVIDERS: Visit Provider Advanced Practice Midwife
DX: D72.829 Elevated white blood cell count, unspecified (principal)
CPT/HCPCS: 36415; 85025

== ENCOUNTER → 2019-11-02 11:17 | Outpatient (CLI) | payer SELFPAY ==
[2019-11-02 13:53] LABS: Hematocrit 31.7 % (37-47); Hemoglobin 10.5 g/dL (12.0-15.0); Mean Corp Hgb Conc 33.1 g/dL (32-36); Mean Corpuscular Hgb 29.4 pg (27.0-32.0); Mean Corpuscular Volume 88.8 fL (81-99); Mean Platelet Vol. 9.9 fl (6.2-12.0); Platelet Count 296 K/mm3 (150-450); RBC Distribution Width CV 13.6 % (11.6-14.6); RBC Distribution Width SD 44.5 fl (35.1-43.9); Red Blood Count 3.57 M/mm3 (4.2-5.4); White Blood Count 10.3 K/mm3 (4.4-11.0)
[2019-11-02 13:58] LABS: Glucose Challenge Gest 1H 50g 98 mg/dL (70-140)
[2019-11-02 14:15] LABS: Vitamin D,25 Hydroxy 37.6 ng/mL (29.95-100.01)
== END ==
PROVIDERS: Visit Provider Obstetrics & Gynecology
DX: O99.282 Endocrine, nutritional and metabolic diseases complicating pregnancy, second trimester (principal); E55.9 Vitamin D deficiency, unspecified; Z3A.00 Weeks of gestation of pregnancy not specified
CPT/HCPCS: 36415; 82306; 82950; 85027

== ENCOUNTER → 2020-01-02 | Outpatient (CLI) | payer SELFPAY | END | disposition home or self-care (01) | PROVIDERS: Referring Provider Obstetrics & Gynecology; Visit Provider Obstetrics & Gynecology | DX: Z36.85 Encounter for antenatal screening for Streptococcus B (principal) | CPT/HCPCS: 87081 ==

== ENCOUNTER 2020-01-22 10:10 | Inpatient (IN) | payer SELFPAY ==
[2019-05-24 00:32] VITALS: BMI 24.6
[2020-01-22] VITALS (38 sets, daily range): BP systolic 97–133; BP diastolic 52–79; PULSE 68–107; RESP 15–19; TEMP 36.3–36.8; O2SAT 95–100; BMI 29.9
[2020-01-22] MEDS: Lactated Ringers 1,000 ML 999 ML IV (10:30)
[2020-01-22 10:54] LABS: Absolute Lymphocyte Count 1.99 X10^3/uL (0.83-4.51); Absolute Neutrophil Count 8.6 X10^3/uL (2.0-7.7); Basophil# 0.06 X10^3/uL; Basophil% 0.5 % (0-1); Eosinophil# 0.05 X10^3/uL; Eosinophils% 0.4 % (0-5); Hematocrit 38.4 % (37-47); Hemoglobin 12.5 g/dL (12.0-15.0); Lymphocyte # 1.99 X10^3/ul (4.0); Lymphocyte % 17.4 % (19-41); Mean Corp Hgb Conc 32.6 g/dL (32-36); Mean Corpuscular Hgb 29.2 pg (27.0-32.0); Mean Corpuscular Volume 89.7 fL (81-99); Mean Platelet Vol. 10.6 fl (6.2-12.0); Monocyte# 0.66 X10^3/uL; Monocyte% 5.8 % (0-10); NRBC Flagged by Analyzer 0 % (0-5); Neutrophil # 8.62 X10^3/uL (2.7-7.7); Neutrophil % 75.4 % (47-70); Platelet Count 205 K/mm3 (150-450); RBC Distribution Width CV 14.6 % (11.6-14.6); RBC Distribution Width SD 47.2 fl (35.1-43.9); Red Blood Count 4.28 M/mm3 (4.2-5.4); White Blood Count 11.4 K/mm3 (4.4-11.0)
[2020-01-22] MEDS: Lactated Ringers 1,000 ML 150 ML IV (11:31)
--- NOTE | 2020-01-22 13:00 | PCM.HP.OB ---
- Problem List (1) 39 weeks gestation of Status: Acute History Date of Admission: 01/22/20 Final GILDA: 01/28/20 Gestational age: 39 Weeks and 1 Days History of this : This is a 34 year-old, G [3], P [2002], at 39 1/7 weeks gestational age presenting for scheduled section for breech. Medical History: Medical History (Last Updated 01/22/20 @ 18:[address] Kristina Garcia MD) Diverticulitis K57.92 2019 - bowel perforation Personal history of gestational diabetes Z86.32 2017 - second Surgical History: Surgical History (Last Reviewed 08/24/19 @ 14:03 by Elizabeth Marmolejo) S/P colectomy Z90.49 05/23/19 Allergies No Known Allergies Allergy (Verified 08/24/19 14:03) Home Medications: Home Medications Pnv No.95/Ferrous Fum/Folic AC [ Caplet] 1 ea PO DAILY 08/15/19 Cimetidine [Tagamet Hb] 200 mg PO DAILY 01/22/20 Diphenhydramine HCl [Unisom] 50 mg PO DAILY 01/22/20 Ferrous Sulfate [Iron] 325 mg PO DAILY 01/22/20 Smoking Status: Never smoker Alcohol: None Substance Use Type: Sleep Aides Number of Fetus(es): 1 NST - FHR Rate Baby A Baseline: 125 Variability:: Moderate Accelerations:: 15 x 15 Decelerations:: None NST Reactive:: Yes FHR Category:: Category I Uterine Activity:: irritabiliyt History Past Pregnancies: Past Pregnancies Delivery Date GA/ Weeks Outcome Route Wt Sex Labor Length Anesthesia Delivery Location [facility] 01/2014 34 Living 4lb 13oz F 5 Epidural [facility] 12/2016 39 Living 7lb1oz M 4 Epidural [facility] Labs: Mom's Labs & Results 01/22/20 01/22/20 10:30 10:30 WBC 11.4 H RBC 4.28 Hgb 12.5 Hct 38.4 MCV 89.7 MCH 29.2 MCHC 32.6 RDW Std Deviation 47.2 H RDW Coeff of Nicholas 14.6 Plt Count 205 MPV 10.6 Immature Gran % (Auto) 0.500 Neut % (Auto) 75.4 H Lymph % (Auto) 17.4 L Weber % (Auto) 5.8 Eos % (Auto) 0.4 Baso % (Auto) 0.5 Absolute Neuts (auto) 8.6 H Absolute Lymphs (auto) 1.99 Nucleated RBC % 0 Blood Type A POSITIVE Antibody Screen NEGATIVE Course Did the patient receive Yes care? Labs Blood Type: A RH: POSITIVE RPR/VDRL/Syphilis Nonreactive Rubella status Immune HbSAg Negative Date Done: 07/11/19 Chlamydia Negative Gonorrhea Negative HIV/AIDS Non-Reactive Group B Strep: Negative Current Obstetrical History Gestational Diabetes No Incompetent Cervix No Infertility No IUGR No Macrosomia No Hypertension/Pre-eclampsia No Placenta Previa/Abruption No PTL/PROM No Uterine anomaly No Oligohydramnios No Polyhydramnios No Multiple gestation No Past Medical History Asthma No Diabetes No Hypertension No Heart disease No Mitral valve prolapse No Neurologic/Seizure disorder/ No Migraines Kidney disease No Liver disease No Varicosities No Clotting disorders/Hx of DVT No Thyroid Dysfunction No Other medical diseases Yes Psychiatric disorders No Major trauma No Abnormal PAP smear No Sleep apnea No Mammogram in the last 2 years No Enter DETAILS of medical diverticulitis history Social History Marital Status: Alleged father Tyrone Chi Hx Smoking No Smoking Status Never smoker Substance Use Type Sleep Aides How long have you used pt. began taking unisome for nausea and sleep substances (years)? aide in june 2019 What date/time did you last pt. took unisome 01/21/20 at 1945 use any of the above? Expected Delivery Method: Spontaneous Vaginal Number of Visits: 13 Physical Exam Vitals: Vital Signs Temp Pulse BP Pulse Ox 97.3 F L 92 112/67 99 01/22/20 16:32 01/22/20 16:32 01/22/20 16:32 01/22/20 16:32 General: Alert, Oriented x3, Cooperative, No apparent distress HEENT: Atraumatic, Normocephalic Cardiovascular: Regular rate, Regular Rhythm Lungs: Normal air movement Abdomen: Soft, Non Tender, Non-Distended, Gravid Extremities:: Other - trace LE edema Neurological: Neuro grossly intact DECISION UNIT RN: Normal external genitalia Estimated gestational size: Appropriate for gestational size Presentation: Cephalic Cervix Dilation (cm): 3 Station: -3 Effacement (%): 50 Assessment/Plan All Active Problems (Last Updated 01/22/20 @ 18:[address] Kristina Garcia MD) Pelvic pain (Acute) 39 weeks gestation of (Acute) Perforation of sigmoid colon due to diverticulitis (Resolved) This is a 34 year-old, G [3], P [2], at 39 1/7 weeks gestational age. -Unstable lie, now cephalic -Discussed section as planned versus IOL at this time. Pt understands that malpresentation however may recur with IOL necessitating section. Pt opts for the latter. Plan for pitocin, amniotomy. Essential Procedure Criteria Procedure Essential: Yes Criteria Note: On 12/04/2019 the [place] Department of Health ([facility]) Public Order signed by [facility] Director Yaquelin Santana M.D., regarding the Management of Non-Essential Surgeries and Procedures for the purpose of preserving Personal Protective Equipment (PPE) and critical hospital capacity and resources within [place] went into effect as of 12/05/2019 at 5:00PM. According to the [facility] Public Order: This action will remain in full force and effect until the State of Emergency declared by the Governor no longer exists or the Director of the [facility] rescinds or modifies this Order.. This [facility] order stated all non-essential or elective surgeries and procedures that utilize PPE should be delayed unless there is undue risk to the current or future health of a patient. After reviewing the aforementioned [facility] Public Order and the patients clinical case, I have determined that the scheduled procedure meets the criteria to go forward. Risk to Patient if Procedure Delayed: Threat to patient's life if surgery or procedure is delayed
[2020-01-22] MEDS: Oxytocin 30 units/NS 500 ml 30 UNITS/500 ML IV.SOLN IV (13:46)
[2020-01-22] MEDS: Lactated Ringers 500 ML 999 ML IV (14:39)
[2020-01-22] MEDS: fentaNYL-bupivacaine (epidural) 100 ML BAG EPIDURAL (15:46)
[2020-01-22] MEDS: Mag Hydrox/Al Hydrox/Simeth 30 ML UDC PO (16:14)
[2020-01-22] MEDS: Cefazolin 2 GM in 0.9% Normal Saline 100 ML IV (17:17)
[2020-01-22] MEDS: Sodium Citrate/Citric Acid 30 ML UDC PO (17:18)
--- NOTE | 2020-01-22 17:22 | PCM.PN.BLA ---
Progress Note LABOR PROGRESS NOTE Comfortable with epidural. AVSS GEN - NAD, AAO x 3 FHR 135, moderate variability, + accelerations, no decelerations TOCO 4/10 min 5/90/-3, elbow in the vagina and head not palpable A/P: 34yo @ 39 wga with Cat I FHR, unstable lie with malpresentation -Advised section, pt in agreement, will proceed STROKE Vital Signs/Narrative: Vital Signs Temp Pulse BP Pulse Ox 01/22/20 16:32 97.3 F L 92 112/67 99 01/22/20 16:04 83 124/64 H 01/22/20 16:00 95 118/74 100 01/22/20 15:55 87 98 01/22/20 15:54 81 112/55 L 01/22/20 15:50 99 99 01/22/20 15:48 103 H 109/57 L 01/22/20 15:46 86 114/56 L 01/22/20 15:45 104 H 98 01/22/20 15:43 96 106/56 L 01/22/20 15:40 95 98 01/22/20 15:38 98 117/61 01/22/20 15:35 91 123/65 H 98 01/22/20 15:30 79 98 01/22/20 15:29 91 133/74 H 01/22/20 15:25 86 97 01/22/20 15:23 107 H 123/74 H 01/22/20 15:20 84 133/79 H 98 01/22/20 15:15 94 100 01/22/20 15:10 85 98 01/22/20 15:05 97.7 F L 90 98 01/22/20 15:04 91 116/61 01/22/20 13:51 85 98 01/22/20 13:50 84 106/57 L
--- NOTE | 2020-01-22 18:30 | OP.PCM_ITS ---
Problem List (1) 39 weeks gestation of Status: Acute Delivery Classification: MAKENZIE Final GILDA: 01/28/20 Final GILDA Source: [place] <20 weeks Gestational age: 39 Weeks and 1 Days [place] doctor who attended delivery (if requested by OB): Tessa Dawn electronic maintenance supervisor: Mya Yoder Type of Anesthesia:: Epidural Date of Procedure: 01/22/20 Pre-Operative Diagnosis: 39 1/7wga, unstable lie Post-Operative Diagnosis: 39 1/7wga, unstable lie, transverse with arm presentation Indications: 34yo admitted at 39 1/7wga for scheduled section for breech presentation. On evaluation however fetus was cephalic. She underwent induction of labor with pitocin and amniotomy however fetus verted to arm presentation. I advised section and patient agreed to proceed. Indications for : Malpresentation Description of Procedure: The patient was taken to the operating room and spinal analgesia was administered. She is placed in a dorsal supine position with left lateral tilt. The perineum and abdomen were prepped and draped in sterile fashion. And the spinal was found to be adequate. A Pfannenstiel incision was made using a scalpel and brought down to incise the subcutaneous tissue and rectus fascia at the midline. Subcutaneous tissue was bluntly dissected off the fascia laterally. The fascial incision was dissected laterally and cephalad using curved Mitchell scissors. The superior leaflet of the rectus fascia was grasped using Chino clamps and bluntly dissected and sharply dissected from the underlying rectus muscle. In a similar fashion the inferior rectus fascia was dissected from the underlying muscle. The rectus muscles were bluntly at the midline. The peritoneum was identified and entered [sharply]. The bladder blade was placed into the abdomen and the vesicouterine peritoneal fold identified. The fold was incised and a bladder flap created. Bladder blade was then repositioned to the abdomen. A low transverse hysterotomy was made using the [Metzenbaum scissors] to level of the membranes. The hysterotomy was extended bluntly cephalad and caudad. The membranes were then ruptured revealing clear fluid. The arm was replaced back into the hysterotomy and on uterine exploration the fetus was notably transverse, back up with head to the maternal left. The head was guided to the hysterotomy and the delivered revealing a [male] infant. The cord was doubly clamped and cut immediately. The was passed to awaiting [nursery personnel] and Pediatri c Hospitalist. The placenta was [expressed] from the uterus and appeared intact on inspection. The uterus was exteriorized and cleared of debris. The hysterotomy was then repaired using 0 Vicryl running lock suture. A second imbricating layer was also placed for additional hemostasis. The bladder blade was removed. The anterior cul-de-sac was cleared of debris. The peritoneum and rectus muscles were reapproximated using 2-0 Vicryl running suture. The rectus fascia was closed using 0 Stratafix running suture. Small capillary bleeding controlled using the Bovie device. The subcutaneous tissue was reapproximated using 2-0 Vicryl. The skin was closed using 4-0 Monocryl subcuticularly by the BAR TACKER SEWING MACHINE under my supervision. Mepilex occlusive dressing was placed over the incision. The fundus was firm. The patient was then transferred to the recovery room without complication. She tolerated the procedure well. Sponge, instrument, and needle counts were correct ?2. Amniotic Membrane Rupture Type: Artificial Amniotic Fluid Description: Clear Placenta Disposition: [facility] Drain: Escalante to straight drain Fluids Replaced: 1000 ml Cord Entanglement: Around neck x 1, loose Nuchal Cord Compression: Without compression Cord Vessel Description: 3 Vessels Esitmated Blood Loss (ml): 850 ml Infant Gender: Male (1 minute): 9 (5 minute): 9 Delayed cord clamping: No Antibiotic Given: Ancef 2 grams IV x1, Zithromax 500 mg/5 mL X1 Pt instructed on risks of surgery: Bleeding, Anesthesia Risks, Infection, Injury to surrounding structure(s) including bowel and bladder Complications: None - Admit VTE Documentation VTE Present on Admission: No VTE Mechan Device Prophylaxis: SCD's VTE Pharm Prophylaxis ordered?: No
[2020-01-22] MEDS: Oxytocin 30 units/NS 500 ml 30 UNITS/500 ML IV.SOLN 167 UNITS IV (18:50)
--- NOTE | 2020-01-22 21:24 | NURSING ---
BP cuff did not automatically take at this time. RN in OR assisting with delivery, unable to recheck BP at this time.
[2020-01-22] MEDS: Acetaminophen 500 MG Tablet 1000 MG PO (21:45)
--- NOTE | 2020-01-22 21:54 | NURSING ---
pt has post op indwelling urinary catheter
[2020-01-22] MEDS: Lactated Ringers 1,000 ML 100 ML IV (21:58)
--- NOTE | 2020-01-22 23:32 | NURSING ---
Pt epidural catheter removed at 2049 tip intact by this RN. Pt tolerated well, rated pain 0/10, band-aid applied.
--- NOTE | 2020-01-22 23:40 | NURSING ---
RN taught pt how to use incentive spirometer at this time per request by rerussell and encouraged pt to use 10 times per hour while awake.
[2020-01-23] VITALS (10 sets, daily range): BP systolic 92–103; BP diastolic 53–65; PULSE 72–90; RESP 14–22; TEMP 36.4–36.8; O2SAT 96–100
[2020-01-23] MEDS: Ketorolac 30 MG/ML Syringe IV ×4 (00:33→17:53)
[2020-01-23] MEDS: 0.9% Saline Lock 10 ML Syringe IV ×3 (03:35→12:33)
--- NOTE | 2020-01-23 04:30 | CPS ---
Given to pt and instructed by RN
[2020-01-23 06:13] LABS: Hematocrit 27.5 % (37-47); Hemoglobin 9.2 g/dL (12.0-15.0); Mean Corp Hgb Conc 33.5 g/dL (32-36); Mean Corpuscular Hgb 29.9 pg (27.0-32.0); Mean Corpuscular Volume 89.3 fL (81-99); Mean Platelet Vol. 10.6 fl (6.2-12.0); Platelet Count 163 K/mm3 (150-450); RBC Distribution Width CV 14.4 % (11.6-14.6); RBC Distribution Width SD 46.9 fl (35.1-43.9); Red Blood Count 3.08 M/mm3 (4.2-5.4); White Blood Count 12.5 K/mm3 (4.4-11.0)
--- NOTE | 2020-01-23 08:06 | PN.OBGYN_ITS ---
Patient Problems: Active and Suspected Problems (Last Updated 01/22/20 @ 18:[address] Kristina Garcia MD) 39 weeks gestation of (Acute) Subjective: No issues overnight. Pain controlled. Stood at bedside, but not yet ambulating. Denies nausea or vomiting. Tolerated crackers, peanut butter and clears. No flatus yet. Escalante removed this morning. Denies heavy lochia. latched well. Objective: AVSS - Physical Exam Vitals/I&O's: Vital Signs Temp Pulse Resp BP Pulse Ox 97.9 F 90 14 92/53 L 100 01/23/20 02:48 01/23/20 05:48 01/23/20 05:48 01/23/20 02:48 01/23/20 05:48 Oxygen Delivery Method Room Air Weight: 69.4 kg Body Mass Index (BMI) 29.9 Intake and Output for Last 24 Hours 01/21/20 01/22/20 01/23/20 23:59 23:59 23:59 Intake Total 4204.07 / 4204.07 1458.33 / 1458.33 Output Total 800 / 800 800 / 800 Balance 3404.07 / 3404.07 658.33 / 658.33 General: Alert, Oriented x3, Cooperative, No apparent distress HEENT: Atraumatic, Normocephalic Lungs: Clear to auscultation, Normal air movement Cardiovascular: Regular rate, Regular Rhythm, Normal S1, Normal S2 Abdomen: Bowel Sounds Present, Soft, Non Tender, Non-Distended, - - Fundus firm and nontender, lochia scant Extremities: No edema, No Calf Tenderness Neurological: Neuro grossly intact Psych/Mental Status: Normal Affect, Appropriate, Alert and oriented to time, place, person, mood and affect Laboratory Results 01/22/20 10:30: WBC 11.4 H, RBC 4.28, Hgb 12.5, Hct 38.4, MCV 89.7, MCH 29.2, MCHC 32.6, RDW Std Deviation 47.2 H, RDW Coeff of Nicholas 14.6, Plt Count 205, MPV 10.6, Immature Gran % (Auto) 0.500, Neut % (Auto) 75.4 H, Lymph % (Auto) 17.4 L, [place] % (Auto) 5.8, Eos % (Auto) 0.4, Baso % (Auto) 0.5, Absolute Neuts (auto) 8.6 H, Absolute Lymphs (auto) 1.99, Nucleated RBC % 0 01/22/20 10:30: Blood Type A POSITIVE, Antibody Screen NEGATIVE 01/23/20 06:05: WBC 12.5 H, RBC 3.08 L, Hgb 9.2 L, Hct 27.5 L, MCV 89.3, MCH 29.9, MCHC 33.5, RDW Std Deviation 46.9 H, RDW Coeff of Nicholas 14.4, Plt Count 163, MPV 10.6 Current Medications Acetaminophen (Tylenol) 1,000 mg PO Q8H PRN PRN Reason: Pain Score 1-3/10 Last Admin: 01/22/20 21:45 Dose: 1,000 mg Documented by: Bisacodyl (Dulcolax) 10 mg RECTAL UD PRN PRN Reason: If no BM Diphenhydramine HCl (Benadryl) 25 mg PO Q6H PRN PRN PRN Reason: ITCHING Stop: 01/23/20 18:10 Famotidine (Pepcid) 20 mg PO DAILY [facility] Hydrocortisone (Hytone) 1 applic TOPICAL TID PRN PRN; Protocol PRN Reason: Discomfort Lactated Ringer's () 1,000 mls @ 100 mls/hr IV .Q10H [facility] Last Admin: 01/23/20 06:21 Dose: Not Given Documented by: Naloxone HCl 4 mg/ Dextrose 504 mls @ 0 mls/hr IV .Q0M PRN; Protocol PRN Reason: Respiratory depression Ketorolac Tromethamine (Toradol (Bkc)) 30 mg IV Q6 [facility] Stop: 01/24/20 18:01 Last Admin: 01/23/20 05:42 Dose: 30 mg Documented by: Methylergonovine Maleate (Methergine) 0.2 mg IM X1 PRN PRN Reason: Uterine Atony Nalbuphine HCl (Nubain) 5 mg IV Q3H PRN PRN PRN Reason: ITCHING Stop: 01/23/20 18:10 Naloxone HCl (Narcan) 0.02 mg IV Q1M PRN PRN Reason: RR <10 and pt unresponsive Ondansetron HCl (Zofran) 4 mg IV Q4H PRN PRN PRN Reason: Nausea Oxycodone HCl (Oxyir) 5 - 10 mg PO Q4H PRN PRN PRN Reason: Pain Score 4-10/10 Prochlorperazine Edisylate (Compazine Iv) 10 mg IV Q6H PRN PRN PRN Reason: NAUSEA Senna/Docusate Sodium (Senokot-S, Raya-Colace) 0 tablet PO DAILY PRN PRN Reason: Constipation Simethicone (Mylicon) 80 mg PO PCHS PRN PRN Reason: Indigestion/stomach pain Sodium Chloride () 5 - 15 ml IV UD PRN PRN Reason: SALINE FLUSH Last Admin: 01/23/20 05:42 Dose: 10 ml Documented by: Medical Necessity - Tobacco Use Smoking Status: Never smoker Assessment/Plan All Active Problems (Last Updated 01/22/20 @ 18:[address] Kristina Garcia MD) Pelvic pain (Acute) 39 weeks gestation of (Acute) Perforation of sigmoid colon due to diverticulitis (Resolved) This is a 34 year-old, G [3], P [3] POD#1 s/p PLTCS doing well. -Post op anemia - will resume iron supplement on discharge -Rh positive -Routine postop care -Regular diet
[2020-01-23] MEDS: Acetaminophen 500 MG Tablet 1000 MG PO ×2 (08:43→17:07)
[2020-01-23] MEDS: Famotidine 20 MG Tablet PO (11:10)
--- NOTE | 2020-01-23 17:59 | NURSING ---
at 1610, blanquita, office machine service supervisor, phoned in with orders from dr batres to have quevedo catheter placed now.
[2020-01-23] MEDS: oxyCODONE 5 MG Tablet PO (23:01)
--- NOTE | 2020-01-23 23:16 | NURSING ---
pt has indwelling urinary catheter to be left in until AM when pt seen by Dr. Garcia due to urinary retention
[2020-01-24] MEDS: 0.9% Saline Lock 10 ML Syringe IV ×3 (00:07→11:34)
[2020-01-24] MEDS: Ketorolac 30 MG/ML Syringe IV ×3 (00:07→11:34)
[2020-01-24 01:35] VITALS: BP 96/57; PULSE 73; RESP 20; TEMP 36.6
[2020-01-24] MEDS: Acetaminophen 500 MG Tablet 1000 MG PO (02:40)
[2020-01-24 07:50] VITALS: BP 111/70; PULSE 63; RESP 15; TEMP 36.6; O2SAT 98
--- NOTE | 2020-01-24 08:14 | PN.OBGYN_ITS ---
Patient Problems: Active and Suspected Problems (Last Updated 01/22/20 @ 18:[address] Kristina Garcia MD) 39 weeks gestation of (Acute) Subjective: Pain well controlled with oral medication. Has been up in the room ambulating, but was unable to urinate. Quevedo catheter was replaced yesterday. Wants to go home today, but understands needs to urinate on her own first. Reports son is well with no concerns. Tolerating diet and denies any heavy bleeding. Objective: VSS. Surgical dressing CDI. Fundus, firm, midline u/2. - Physical Exam Vitals/I&O's: Vital Signs Temp Pulse Resp BP Pulse Ox 97.9 F 73 20 H 96/57 L 97 01/24/20 01:35 01/24/20 01:35 01/24/20 01:35 01/24/20 01:35 01/23/20 19:51 Oxygen Delivery Method Room Air Weight: 69.4 kg Body Mass Index (BMI) 29.9 Intake and Output for Last 24 Hours 01/22/20 01/23/20 01/24/20 23:59 23:59 23:59 Intake Total 4204.07 / 4204.07 1458.33 / 1458.33 700 / 700 Output Total 800 / 800 3750 / 3750 1250 / 1250 Balance 3404.07 / 3404.07 -2291.67 / -2291.67 -550 / -550 General: Alert, Oriented x3, Cooperative HEENT: Atraumatic, PERRLA, EOMI, Normocephalic Neck: Supple, No JVD, Negative Carotid Bruits Lungs: Clear to auscultation, Normal air movement Cardiovascular: Regular rate, No murmurs Abdomen: Bowel Sounds Present, Soft, Non Tender, Passing Flatus, - - surgical dressing CDI Extremities: No edema, Capillary Refill Less than 3 Seconds Skin: No rashes, No breakdown Musculoskeletal: No Tenderness to Palpation of Joints or Extremities Neurological: Cranial nerves II-XII grossly intact Psych/Mental Status: Normal Affect, Appropriate Current Medications Acetaminophen (Tylenol) 1,000 mg PO Q8H PRN PRN Reason: Pain Score 1-3/10 Last Admin: 01/24/20 02:40 Dose: 1,000 mg Documented by: Bisacodyl (Dulcolax) 10 mg RECTAL UD PRN PRN Reason: If no BM Famotidine (Pepcid) 20 mg PO DAILY [facility] Last Admin: 01/23/20 11:10 Dose: 20 mg Documented by: Hydrocortisone (Hytone) 1 applic TOPICAL TID PRN PRN; Protocol PRN Reason: Discomfort Naloxone HCl 4 mg/ Dextrose 504 mls @ 0 mls/hr IV .Q0M PRN; Protocol PRN Reason: Respiratory depression Ketorolac Tromethamine (Toradol (Bkc)) 30 mg IV Q6 [facility] Stop: 01/24/20 18:01 Last Admin: 01/24/20 06:05 Dose: 30 mg Documented by: Methylergonovine Maleate (Methergine) 0.2 mg IM X1 PRN PRN Reason: Uterine Atony Naloxone HCl (Narcan) 0.02 mg IV Q1M PRN PRN Reason: RR <10 and pt unresponsive Ondansetron HCl (Zofran) 4 mg IV Q4H PRN PRN PRN Reason: Nausea Oxycodone HCl (Oxyir) 5 - 10 mg PO Q4H PRN PRN PRN Reason: Pain Score 4-10/10 Last Admin: 01/23/20 23:01 Dose: 5 mg Documented by: Prochlorperazine Edisylate (Compazine Iv) 10 mg IV Q6H PRN PRN PRN Reason: NAUSEA Senna/Docusate Sodium (Senokot-S, Raya-Colace) 0 tablet PO DAILY PRN PRN Reason: Constipation Simethicone (Mylicon) 80 mg PO PCHS PRN PRN Reason: Indigestion/stomach pain Sodium Chloride () 5 - 15 ml IV UD PRN PRN Reason: SALINE FLUSH Last Admin: 01/24/20 06:05 Dose: 10 ml Documented by: Medical Necessity - Tobacco Use Smoking Status: Never smoker Assessment/Plan All Active Problems (Last Updated 01/22/20 @ 18:[address] Kristina Garcia MD) Pelvic pain (Acute) 39 weeks gestation of (Acute) Perforation of sigmoid colon due to diverticulitis (Resolved) This is a 34 year-old, G [3], P [3] POD#2 s/p PLTCS doing well. -Post op anemia - will resume iron supplement on discharge -Rh positive -Routine postop care -Regular diet -Discontinue quevedo catheter -May discharge if able to urinate independently -Will update attending Dr. Garcia on POC
--- NOTE | 2020-01-24 08:19 | DCINST_ITS ---
Discharge Diet: No Restrictions Discharge Activity: May Not Drive - for 2 weeks or while taking narcotic pain meds., May Shower, May Take a Tub Bath - in 7 days. May resume sexual activity in: 4-6 weeks Lifting Restrictions: 20 pounds Additional Activity Instructions:: Nothing in the vagina for 4-6 weeks. You may return to work/school in 6 weeks. Call your doctor if your incision/area has: Continuous Slow Oozing, Sudden Increased Bleeding, Increased Pain/ Swelling, Increased Redness, Foul Smelling Discharge Call your doctor if you observe: Fever of 101 or Higher Suture Line Care: Avoid Pulling/Pushing, Avoid Pinching/Bending Additional Instructions: If you experience any of the following, contact your healthcare provider. * Bleeding that soaks a pad every hour for 2 hours * Fever 100.4 or higher * Unrelieved incision or abdominal pain * Swelling, redness, discharge or bleeding from your incision or episiotomy site * Your incision begins to separate * Problems urinating (including inability to urinate or burning while urinating). * Visual changes * Severe headache * Flu-like symptoms * Pain or redness in one of both of your breasts * Pain, warmth, tenderness or swelling in your legs, especially the calf area * Frequent nausea and vomiting * Symptoms of depression or anxiety If you experience any of the following, call 911 or go to the nearest Emergency Room. * Chest pain * Problems breathing * Seizure activity * Partial or complete paralysis of a body part, slurred speech, weakness or drooping of the face, or a sudden inability to walk or hold your balance Allergies/Adverse Reactions: Allergies No Known Allergies Allergy (Verified 08/24/19 14:03) Medications to take at Discharge Pnv No.95/Ferrous Fum/Folic AC [ Caplet] 1 ea PO DAILY 08/15/19 Cimetidine [Tagamet Hb] 200 mg PO DAILY 01/22/20 Diphenhydramine HCl [Unisom] 50 mg PO DAILY 01/22/20 Ferrous Sulfate [Iron] 325 mg PO DAILY 01/22/20 Oxycodone [Oxyir] 5 - 10 mg PO Q4H PRN PRN 3 Days #10 tab 01/24/20 The following prescriptions were given: Oxycodone [Oxyir] 5 - 10 mg PO Q4H PRN PRN 3 Days #10 tab PRN Reason: Pain Score 4-10/10 Transmission Status: Received by [facility] [id number] Follow-Up: Call to make an appointment with your doctor for an incision check in 1-2 weeks. You will also need a 6 week post- follow up appointment. Test results from this visit will be discussed in further detail at your follow- up appointment, if applicable. Please Follow Up With: Kristina Garcia MD Primary Care Physician: Deya Diaz PA [Primary Care Provider] -
[2020-01-24 14:57] VITALS: BP 123/71; PULSE 68; RESP 16; TEMP 36.8
== END 2020-01-24 15:25 | disposition home or self-care (01) | DRG 787 ==
PROVIDERS: Admitting Provider Obstetrics & Gynecology; PCP Physician Assistant; Referring Provider Obstetrics & Gynecology; Visit Provider Obstetrics & Gynecology
PROC: 10D00Z1 Extraction of Products of Conception, Low, Open Approach (ICD-10-PCS; CPT 59514; principal; 2020-01-22 11:45)
DX: O32.2XX0 Maternal care for transverse and oblique lie, not applicable or unspecified (principal); D62 Acute posthemorrhagic anemia; O90.81 Anemia of the puerperium; O32.0XX0 Maternal care for unstable lie, not applicable or unspecified; O69.81X0 Labor and delivery complicated by cord around neck, without compression, not applicable or unspecified; Z3A.39 39 weeks gestation of pregnancy; Z37.0 Single live birth; Z86.32 Personal history of gestational diabetes
CPT/HCPCS: 59025; 59050; 76815; 85025; 85027; 86850; 86900; 86901; 99218; J7120; A4216; G0378; J2405